=== PATIENT | female | born 1955 | race Caucasian/White ===

== ENCOUNTER 2021-07-30 11:13 | Inpatient (IN) | payer BC, SELFPAY ==
[~2021-07-30] VITALS: Ht 160 cm; Wt 69.9 kg
[2021-07-30 11:17] VITALS: BP_SYST 124
--- NOTE | 2021-07-30 12:15 | NUR ---
Pt in bed with husbad at bedside. Language barrier present. G-tube in place. Edema noted on arms. Pt is A&Ox2. Non-ambulatory. Skin intact. Denies any pain. Bed in lowest position. VSS.
--- NOTE | 2021-07-30 12:26 | NUR ---
ER physician at bedside.
--- NOTE | 2021-07-30 12:33 | NUR ---
Accucheck done and BS results were 92.
[2021-07-30 13:14] LABS: BASOPHILS % (AUTO) 0.4 % (0.0-2.0); EOSINOPHILS % (AUTO) 0.1 % (0.0-4.0); HEMATOCRIT 32.3 % (36-48); HEMOGLOBIN 10.4 g/dL (12.0-16.0); LYMPHOCYTES # (AUTO) 0.4 K/uL (1.0-5.5); LYMPHOCYTES % (AUTO) 3.6 % (20.5-51.5); MEAN CORPUSCULAR HEMOGLOBIN 26 pg (27-31); MEAN CORPUSCULAR HGB CONC 32 % (32-36); MEAN CORPUSCULAR VOLUME 82 fL (79.0-98.0); MONOCYTES # (AUTO) 0.7 K/uL (0.0-1.0); MONOCYTES % (AUTO) 5.5 % (1.7-9.3); NEUTROPHILS # (AUTO) 11.2 K/uL (1.8-7.7); NEUTROPHILS % (AUTO) 90.4 % (40.0-70.0); PLATELET COUNT (AUTO) 502 K/uL (130-430); RED BLOOD CELL COUNT(AUTO) 3.96 MIL/uL (4.2-6.2); RED CELL DISTRIBUTION WIDTH 17.1 % (9.0-15.0); WHITE BLOOD COUNT (AUTO) 12.4 K/uL (4.8-10.8)
[2021-07-30 13:19] LABS: CALCIUM 8.6 mg/dL (8.4-11.0); CREATININE 0.34 mg/dL (0.55-1.30); POTASSIUM 3.9 mmol/L (3.5-5.1)
[2021-07-30 13:36] LABS: ALBUMIN 1.9 g/dL (3.4-4.8); TOTAL BILIRUBIN 0.3 mg/dL (0.0-1.0)
[2021-07-30] MEDS ORDERED: GASTROGRAFIN 120 ML ONE (15:15)
--- NOTE | 2021-07-30 15:23 | NUR ---
PORTABLE X-RAY AT THE BEDSIDE
--- NOTE | 2021-07-30 15:57 | NUR ---
Covid swab sent to lab. Pt is resting. Lethargic but arousable. VSS. at bedside.
--- NOTE | 2021-07-30 16:23 | NUR ---
Accucheck done and results were 117. VSS. at bedside.
[2021-07-30] MEDS ORDERED: NACL 0.9% 1,000 ML IV ONE (18:00)
[2021-07-30] MEDS ORDERED: VANCOMYCIN HCL 1,000 MG in NS 250 ML IV ONE (18:00)
[2021-07-30 18:25] LABS: ACETAMINOPHEN < 1 ug/mL (1-30)
--- NOTE | 2021-07-30 18:44 | NUR ---
Pt running on 100ml/hr NS 0.9. Waiting for pharmacy to bring prescribed medication (Vancomycin) to administer to pt.
[2021-07-30] MEDS ORDERED: VANCOMYCIN HCL 1000 MG/VIAL IV ONE (19:30)
--- NOTE | 2021-07-30 20:00 | NUR ---
called multiple times for report and no answer.
--- NOTE | 2021-07-30 20:08 | NUR ---
Transfer to [facility]. IV present no sign or symptom of infiltration.
[2021-07-30 22:53] VITALS: BP_SYST 121
--- NOTE | 2021-07-30 23:10 | NUR ---
Michelle patients daughter [phone]
--- NOTE | 2021-07-30 23:39 | NUR ---
NURSE CALLED DR IBARRA WHO WAS UPSET ABOUT THE NURSE ASKING FOR TUBE FEEDING ORDER SINCE PATIENTS BLOOD SUGAR HAD DROPPED TO 40 . CHARGE NURSE WAS NOTIFIED. HE STATED WILL CALL THE DOCTOR TO ASK .
[2021-07-31] VITALS: BP_SYST 139
--- NOTE | 2021-07-31 00:04 | NUR ---
LIZ FROM [facility] CALLS REGARDING PATIENT ADMISSION REASON Per Liz, states they need the admission reason to discharge them from their respective facility [facility]. Informed Liz they are admitted here for liver failure.
--- NOTE | 2021-07-31 00:50 | NUR ---
1230 STARTED GLUCERNA 1.2 AT 60 CC PER HOUR . PER SON PATIENT WAS GETTING 75 CC PER HOUR AT THE SNF
[2021-07-31] MEDS ORDERED: ALBUTEROL SULFATE 0.083% 2.5 MG/3 ML VIAL.NEB INH PRN (01:15)
[2021-07-31] MEDS ORDERED: GLUCOSE (DEXTROSE) ORAL GEL -Adults PO PRN ×2 (01:15→13:30)
[2021-07-31] MEDS ORDERED: D5W 1,000 ML IV PRN ×2 (01:15→13:30)
[2021-07-31] MEDS ORDERED: DEXTROSE 50% JECT 50 ML DISP.SYRIN IVP PRN ×2 (01:15→13:30)
[2021-07-31] MEDS ORDERED: MORPHINE 4 MG INJ. 4 MG/ML VIAL IVP PRN (01:15)
[2021-07-31] MEDS ORDERED: NALOXONE HCL 0.4 MG/ML AMP (NARCAN) IVP PRN (01:15)
[2021-07-31] MEDS ORDERED: D5NS 1,000 ML IV SCH (01:15)
[2021-07-31] MEDS ORDERED: MORPHINE 2 MG/ML INJ. SYRINGE IVP PRN (01:15)
[2021-07-31] MEDS ORDERED: cefTRIAXone 1 GM IVPB PREMIX 50 ML IV ONE (02:13)
[2021-07-31] MEDS: cefTRIAXone 1 GM IVPB PREMIX 50 ML IV SCH (02:31)
--- NOTE | 2021-07-31 03:23 | NUR ---
SPOKE WITH PATIENT DAUGHTER MIHAELA WHO WANTED TO SEE HOW PATIENT IS DOIG
[2021-07-31 04:48] VITALS: BP_SYST 139
[2021-07-31] MEDS: ONDANSETRON HCL 4 MG/2 ML VIAL IVP PRN ×2 (05:49→17:04)
--- NOTE | 2021-07-31 07:49 | NUR ---
CONSULTATION PAGED/CALLED Reason for Consultation: [] LIVER FAILURE Person Who was Notified: [] MARY Consulting Physician: [] DR CABALLERO [employer] Consultant Specialty: [] GI Ordering Physician: [] DR PADILLA
--- NOTE | 2021-07-31 08:00 | NUR ---
PATIENT IS AWAKE, RESPONSIVE TO VERBAL STIMULI, ORIENTED X 1 OPEN EYES WHEN CALLED BY NAME. RESPIRATION EVEN AND UNLABORED NO S/S OF ANY ACUTE DISTRESS NOTED. ALL NEEDS ASSESS Q HOURLY AND PRN. ABDOMEN SOFT AND NON-DISTENDED, POSITIVE BOWEL SOUND X 4 NO N/V OR DIARRHEA NOTED. SURGICAL INCISION MID-ABDOMINAL AREA WITH STAPLE INTACT W/O ANY DEHISCENCE OR DISCHARGE NOTED. G-TUBE SITE WITH SOME PURULENT DISCHARGE FROM SITE, WILL NOTIFY MD FOR DRESSING CHANGE ORDER AND ANTIBIOTIC OINTMENT TO BE APPLY @ SITE. NO FEEDING FOR NOW, ORDER FOR MRCP TODAY PER DR. CABALLERO
[2021-07-31 08:03] LABS: BASOPHILS % (AUTO) 0.4 % (0.0-2.0); EOSINOPHILS # (AUTO) 0.1 K/uL (0.0-0.4); EOSINOPHILS % (AUTO) 0.7 % (0.0-4.0); HEMATOCRIT 31.3 % (36-48); HEMOGLOBIN 10.2 g/dL (12.0-16.0); LYMPHOCYTES # (AUTO) 0.8 K/uL (1.0-5.5); LYMPHOCYTES % (AUTO) 9.3 % (20.5-51.5); MEAN CORPUSCULAR HEMOGLOBIN 27 pg (27-31); MEAN CORPUSCULAR HGB CONC 33 % (32-36); MEAN CORPUSCULAR VOLUME 82 fL (79.0-98.0); MONOCYTES # (AUTO) 0.7 K/uL (0.0-1.0); MONOCYTES % (AUTO) 7.7 % (1.7-9.3); NEUTROPHILS # (AUTO) 7.5 K/uL (1.8-7.7); NEUTROPHILS % (AUTO) 81.9 % (40.0-70.0); PLATELET COUNT (AUTO) 520 K/uL (130-430); RED BLOOD CELL COUNT(AUTO) 3.81 MIL/uL (4.2-6.2); RED CELL DISTRIBUTION WIDTH 17.3 % (9.0-15.0); WHITE BLOOD COUNT (AUTO) 9.2 K/uL (4.8-10.8)
[2021-07-31 09:04] LABS: INR 0.9 (0.8-1.2)
[2021-07-31 09:40] LABS: ALBUMIN 1.8 g/dL (3.4-4.8); CALCIUM 8.6 mg/dL (8.4-11.0); CREATININE 0.35 mg/dL (0.55-1.30); POTASSIUM 3.9 mmol/L (3.5-5.1); TOTAL BILIRUBIN 0.4 mg/dL (0.0-1.0)
--- NOTE | 2021-07-31 09:56 | NUR ---
Nutrition Update Sammy Scale 16 noted. Pt admitted for liver failure. Diet: clear liquid BMI: 27.5 kg/m2 RD to follow per nutrition care standards.
--- NOTE | 2021-07-31 11:00 | NUR ---
DR. CABALLERO SAW PATIENT BEFORE MRCP, DC'D ALL ABOMINAL INCISION STAPLE AND LEFT OPEN TO AIR. G-TUBE SITE CLEANSED WITH NORMAL SALINE AND APPLY DRY DRESSING FOR NOW UNTIL ANTIBIOTIC OINTMENT IS AVAILABLE FROM RX. WILL CONTINUE TO REASSES PATIENT PRN.
[2021-07-31 12:00] VITALS: BP_SYST 130
--- NOTE | 2021-07-31 12:33 | NUR ---
CONSULTATION PAGED/CALLED Reason for Consultation: [] hypoglycemia Person Who was Notified: [] LEFT A MESSAGE Consulting Physician: [] DR ESCAMILLA SAYYUNG, M Senior Net Web Developer Specialty: [] ENDOCRINE Ordering Physician: [] DR PADILLA
[2021-07-31 16:00] VITALS: BP_SYST 127
--- NOTE | 2021-07-31 17:00 | NUR ---
MRCP RESULT RELAYED TO DR. CABALLERO WITH NEW ORDER TO RESUME FEEDING VIA G-TUBE WITH GLUCERNA @ 60 CC/HR AND TKO IV FLUID. WILL CONTINUE TO REASSESS PATIENT PRN
--- NOTE | 2021-07-31 19:00 | NUR ---
ENDORSED PATIENT TO PM SHIFT NURSE.
--- NOTE | 2021-07-31 19:55 | NUR ---
Opening notes Pt asleep, opens eyes, non-verbal. VSS, afebrile. at bedside. GT feeding running at 60cc/hr, no residual noted. Abd scar noted open to air. Pt repositioned. Call light within reach. Bed low, locked, siderails up x4, alarm on. To monitor.
[2021-07-31 20:00] VITALS: BP_SYST 120
[2021-07-31] MEDS: BACITRACIN ZINC 15 GM TOPICAL OINTMENT TP SCH (21:55)
[2021-07-31] MEDS ORDERED: ANAS1TAB51 PO (22:45)
[2021-08-01] MEDS: cefTRIAXone 1 GM IVPB PREMIX 50 ML IV SCH (00:08)
--- NOTE | 2021-08-01 00:10 | NUR ---
Rounds/BS check Pt asleep, resting in bed. No s/s distress noted. IV antibiotic administered at ordered rate L. AC 18G clear and patent. BS checked 197, no insulin indicated per protocol. GT feeding Glucerna running at 60cc/hr, water flush 100ml given as ordered. HOB maintained elevated. Repositioned. Call light within reach. To monitor.
[2021-08-01 00:22] VITALS: BP_SYST 128
[2021-08-01] MEDS: INSULIN LISPRO SLIDING SCALE 100 UNITS/ML VIAL (humaLOG) SUBCUT PRN (05:58)
--- NOTE | 2021-08-01 06:00 | NUR ---
Closing notes Pt asleep, resting in bed. No s/s distress noted. IV antibiotic administered at ordered rate L. AC 18G clear and patent. BS checked 219, 2 units Humulog indicated per protocol. GT feeding Glucerna running at 60cc/hr, water flush 100ml given as ordered. HOB maintained elevated. Repositioned. Bry SCDs on. Call light within reach. To monitor. Addendum: 08/01/21 at 0621 by Elen Saini RN 1 unit Humulog given.
--- NOTE | 2021-08-01 07:24 | NUR ---
Endorsed to AM nurse to f/u re Anastrozole 1mg daily that pt takes per .
[2021-08-01 08:00] VITALS: BP_SYST 131
[2021-08-01 08:06] LABS: HEPATITIS A AB, IgM Negative (Negative); HEPATITIS B CORE AB, IgM Negative (Negative); HEPATITIS B SURFACE AG Negative (Negative)
[2021-08-01] MEDS: BACITRACIN ZINC 15 GM TOPICAL OINTMENT TP SCH ×2 (09:00→20:52)
[2021-08-01 12:00] VITALS: BP_SYST 129
[2021-08-01 12:28] LABS: BASOPHILS # (AUTO) 0.1 K/uL (0.0-0.2); BASOPHILS % (AUTO) 0.6 % (0.0-2.0); EOSINOPHILS # (AUTO) 0.1 K/uL (0.0-0.4); EOSINOPHILS % (AUTO) 0.6 % (0.0-4.0); HEMATOCRIT 30.7 % (36-48); HEMOGLOBIN 9.9 g/dL (12.0-16.0); LYMPHOCYTES # (AUTO) 1.3 K/uL (1.0-5.5); LYMPHOCYTES % (AUTO) 14.5 % (20.5-51.5); MEAN CORPUSCULAR HEMOGLOBIN 26 pg (27-31); MEAN CORPUSCULAR HGB CONC 32 % (32-36); MEAN CORPUSCULAR VOLUME 81 fL (79.0-98.0); MONOCYTES # (AUTO) 0.7 K/uL (0.0-1.0); MONOCYTES % (AUTO) 7.4 % (1.7-9.3); NEUTROPHILS # (AUTO) 6.9 K/uL (1.8-7.7); NEUTROPHILS % (AUTO) 76.9 % (40.0-70.0); PLATELET COUNT (AUTO) 504 K/uL (130-430); RED BLOOD CELL COUNT(AUTO) 3.78 MIL/uL (4.2-6.2); RED CELL DISTRIBUTION WIDTH 17.2 % (9.0-15.0)
[2021-08-01 12:54] LABS: ALBUMIN 1.8 g/dL (3.4-4.8); BILIRUBIN,DIRECT 0.1 mg/dL (0.0-0.3); TOTAL BILIRUBIN 0.2 mg/dL (0.0-1.0)
[2021-08-01] MEDS: ONDANSETRON HCL 4 MG/2 ML VIAL IVP PRN ×2 (14:56→22:14)
[2021-08-01 16:00] VITALS: BP_SYST 136
[2021-08-01 20:00] VITALS: BP_SYST 134
[2021-08-02] MEDS: cefTRIAXone 1 GM IVPB PREMIX 50 ML IV SCH (00:33)
[2021-08-02 00:39] VITALS: BP_SYST 116
[2021-08-02 03:08] VITALS: BP_SYST 134
[2021-08-02] MEDS: INSULIN LISPRO SLIDING SCALE 100 UNITS/ML VIAL (humaLOG) SUBCUT PRN ×2 (05:58→19:11)
[2021-08-02 08:21] LABS: BASOPHILS # (AUTO) 0.1 K/uL (0.0-0.2); BASOPHILS % (AUTO) 0.9 % (0.0-2.0); EOSINOPHILS # (AUTO) 0.1 K/uL (0.0-0.4); EOSINOPHILS % (AUTO) 1.1 % (0.0-4.0); HEMATOCRIT 29.7 % (36-48); HEMOGLOBIN 9.7 g/dL (12.0-16.0); LYMPHOCYTES # (AUTO) 1.3 K/uL (1.0-5.5); LYMPHOCYTES % (AUTO) 15.9 % (20.5-51.5); MEAN CORPUSCULAR HEMOGLOBIN 26 pg (27-31); MEAN CORPUSCULAR HGB CONC 33 % (32-36); MEAN CORPUSCULAR VOLUME 81 fL (79.0-98.0); MONOCYTES # (AUTO) 0.6 K/uL (0.0-1.0); MONOCYTES % (AUTO) 6.8 % (1.7-9.3); NEUTROPHILS # (AUTO) 6.1 K/uL (1.8-7.7); NEUTROPHILS % (AUTO) 75.3 % (40.0-70.0); PLATELET COUNT (AUTO) 488 K/uL (130-430); RED BLOOD CELL COUNT(AUTO) 3.66 MIL/uL (4.2-6.2); RED CELL DISTRIBUTION WIDTH 17.3 % (9.0-15.0); WHITE BLOOD COUNT (AUTO) 8.2 K/uL (4.8-10.8)
[2021-08-02 08:51] LABS: ALBUMIN 1.7 g/dL (3.4-4.8); CALCIUM 8.4 mg/dL (8.4-11.0); CREATININE 0.36 mg/dL (0.55-1.30); POTASSIUM 3.8 mmol/L (3.5-5.1)
[2021-08-02 09:18] LABS: TOTAL BILIRUBIN 0.2 mg/dL (0.0-1.0)
[2021-08-02] MEDS: BACITRACIN ZINC 15 GM TOPICAL OINTMENT TP SCH ×2 (11:14→21:04)
[2021-08-02 11:37] VITALS: BP_SYST 130
[2021-08-02] MEDS ORDERED: ONDANSETRON 4 MG ODT TAB PO PRN (14:15)
[2021-08-02] MEDS ORDERED: ANASTROZOLE 1 MG TABLET (ARIMIDEX) PO ONE (14:15)
[2021-08-02 15:40] VITALS: BP_SYST 129
--- NOTE | 2021-08-02 17:21 | NUR ---
Dietitian Recommendations * Glucerna 1.2 at 60 ml/hr, Lázaro BID, Free Water Flush: 150 ml ml Q6h via GT Provides: 1908 kcal/day, 91 gm protein/day, and 1759 ml free water/day Meets: 96% of upper end of estimated caloric needs and 106% of upper end of estimated protein needs LP, RD Please refer to Nutrition Assessment for details. Addendum: 08/02/21 at [address] Amended: Links added.
[2021-08-02 20:00] VITALS: BP_SYST 136
[2021-08-03] VITALS: BP_SYST 136
[2021-08-03 01:01] VITALS: BP_SYST 143
[2021-08-03] MEDS: cefTRIAXone 1 GM IVPB PREMIX 50 ML IV SCH (01:11)
[2021-08-03] MEDS: INSULIN LISPRO SLIDING SCALE 100 UNITS/ML VIAL (humaLOG) SUBCUT PRN ×2 (05:55→13:35)
[2021-08-03] MEDS: LEVOTHYROXINE SODIUM 0.05 MG TABLET PO SCH (06:01)
[2021-08-03 08:00] VITALS: BP_SYST 148
--- NOTE | 2021-08-03 08:00 | NUR ---
Morning rounds: Pt laying in bed, eyes closed. VVS, IV site clean dry and intact, Gtube intact and in place, tube feeding running at ordered rate, no residual. SCDs in place and running, fall and safety precautions in place, call light within reach, will continue to monitor.
[2021-08-03] MEDS: BACITRACIN ZINC 15 GM TOPICAL OINTMENT TP SCH ×2 (10:03→21:58)
[2021-08-03] MEDS: ANASTROZOLE 1 MG TABLET (ARIMIDEX) PO SCH (10:06)
[2021-08-03] MEDS: INSULIN GLARGINE 100 UNITS/ML 10 ML VIAL SUBCUT SCH (10:08)
[2021-08-03 10:25] LABS: BASOPHILS # (AUTO) 0.1 K/uL (0.0-0.2); BASOPHILS % (AUTO) 0.6 % (0.0-2.0); EOSINOPHILS # (AUTO) 0.1 K/uL (0.0-0.4); EOSINOPHILS % (AUTO) 0.8 % (0.0-4.0); HEMATOCRIT 31.2 % (36-48); LYMPHOCYTES # (AUTO) 1.3 K/uL (1.0-5.5); LYMPHOCYTES % (AUTO) 16.8 % (20.5-51.5); MEAN CORPUSCULAR HEMOGLOBIN 26 pg (27-31); MEAN CORPUSCULAR HGB CONC 32 % (32-36); MEAN CORPUSCULAR VOLUME 81 fL (79.0-98.0); MONOCYTES # (AUTO) 0.5 K/uL (0.0-1.0); MONOCYTES % (AUTO) 6.9 % (1.7-9.3); NEUTROPHILS # (AUTO) 5.9 K/uL (1.8-7.7); NEUTROPHILS % (AUTO) 74.9 % (40.0-70.0); PLATELET COUNT (AUTO) 532 K/uL (130-430); RED BLOOD CELL COUNT(AUTO) 3.83 MIL/uL (4.2-6.2); RED CELL DISTRIBUTION WIDTH 16.9 % (9.0-15.0); WHITE BLOOD COUNT (AUTO) 7.9 K/uL (4.8-10.8)
[2021-08-03 12:08] LABS: ALBUMIN 1.8 g/dL (3.4-4.8); CALCIUM 8.9 mg/dL (8.4-11.0); CREATININE 0.53 mg/dL (0.55-1.30); POTASSIUM 3.8 mmol/L (3.5-5.1); TOTAL BILIRUBIN 0.1 mg/dL (0.0-1.0)
[2021-08-03] MEDS: ONDANSETRON HCL 4 MG/2 ML VIAL IVP PRN ×2 (12:56→21:44)
[2021-08-03 17:31] VITALS: BP_SYST 143
[2021-08-03 17:40] VITALS: BP_SYST 143
--- NOTE | 2021-08-03 18:53 | NUR ---
Closing notes: Pt laying in bed, eyes closed. VVS, IV site clean dry and intact, Gtube intact and in place, tube feeding running at ordered rate, no residual. SCDs in place and running, fall and safety precautions in place, call light within reach, will endorse to overnight babysitter.
[2021-08-03 20:00] VITALS: BP_SYST 147
[2021-08-04 00:51] VITALS: BP_SYST 149
[2021-08-04] MEDS: cefTRIAXone 1 GM IVPB PREMIX 50 ML IV SCH (01:17)
[2021-08-04] MEDS: LEVOTHYROXINE SODIUM 0.05 MG TABLET PO SCH (06:01)
[2021-08-04 08:00] VITALS: BP_SYST 138
[2021-08-04] MEDS: BACITRACIN ZINC 15 GM TOPICAL OINTMENT TP SCH (09:59)
[2021-08-04] MEDS: ANASTROZOLE 1 MG TABLET (ARIMIDEX) PO SCH (09:59)
[2021-08-04] MEDS: INSULIN GLARGINE 100 UNITS/ML 10 ML VIAL SUBCUT SCH (10:00)
[2021-08-04 11:26] VITALS: BP_SYST 143
[2021-08-04] MEDS: ONDANSETRON HCL 4 MG/2 ML VIAL IVP PRN (11:34)
[2021-08-04 16:00] VITALS: BP_SYST 136
[2021-08-04 16:11] VITALS: BP_SYST 136
--- NOTE | 2021-08-04 16:50 | NUR ---
Attempt to call report: Facility did not answer. Will try again.
--- NOTE | 2021-08-04 17:00 | NUR ---
Attempt to call report: Facility did not answer. Will try again.
--- NOTE | 2021-08-04 17:15 | NUR ---
Attempt to call report: Facility answer, RN not available to receive report. Will try again.
--- NOTE | 2021-08-04 17:40 | NUR ---
Attempt to call report: Facility did not answer. Will try again.
--- NOTE | 2021-08-04 17:50 | NUR ---
Attempt to call report: Facility did not answer. Will try again.
--- NOTE | 2021-08-04 18:05 | NUR ---
RN notes: at bedside for transfer of pt to SNF, aware and agreed to transfer.
--- NOTE | 2021-08-04 18:06 | NUR ---
Report to SNF: Report given to Keyonna IBARRA, admitting DR. maya Celis.
--- NOTE | 2021-08-04 18:35 | NUR ---
D/C Patient Patient given medication reconciliation form and D/C instructions. Exit Care provided. Patient family verbalized understanding. MD discussed with family the results and treatment provided. Non ambulatory for discharge back to SNF. Patient in stable condition, G tube intact. ID band removed. IV catheter removed, intact and dressing applied, no active bleeding. Rx of Insulin sliding scale given. All belongings sent with patient.
== END 2021-08-04 18:35 | DRG 637 ==
LOC: SED 11:13 → SMU 17:47
PROVIDERS: ADMIT Internal Medicine Hospice and Palliative Medicine; ATTEND Internal Medicine Hospice and Palliative Medicine
DX: E11.649 Type 2 diabetes mellitus with hypoglycemia without coma (principal); E43 Unspecified severe protein-calorie malnutrition; C22.9 Malignant neoplasm of liver, not specified as primary or secondary; C79.31 Secondary malignant neoplasm of brain; I10 Essential (primary) hypertension; E78.5 Hyperlipidemia, unspecified; R13.10 Dysphagia, unspecified; E11.65 Type 2 diabetes mellitus with hyperglycemia; E03.9 Hypothyroidism, unspecified; K72.90 Hepatic failure, unspecified without coma; Z20.822 Contact with and (suspected) exposure to COVID-19; D64.9 Anemia, unspecified; Z79.4 Long term (current) use of insulin; Z79.890 Hormone replacement therapy; Z85.05 Personal history of malignant neoplasm of liver; Z85.3 Personal history of malignant neoplasm of breast; Z90.49 Acquired absence of other specified parts of digestive tract; Z92.21 Personal history of antineoplastic chemotherapy; Z87.442 Personal history of urinary calculi; Z92.3 Personal history of irradiation; Z93.1 Gastrostomy status; Z68.27 Body mass index [BMI] 27.0-27.9, adult
CPT/HCPCS: 36415; 74181; 74240-TC; 76376; 76700-TC; 80053; 80074; 80076; 82962; 83036; 83690; 85025; 85610-TC; 87040; 87081; 94760; 99285; G0480; G0481; J0696; J1815; J2405; J3370; Q0162; Q9963

== ENCOUNTER 2021-08-30 09:25 | Emergency (ER) | payer BC, SELFPAY ==
[~2021-08-30] VITALS: Ht 152.4 cm; Wt 56.7 kg
[2021-08-30 09:25] VITALS: BP_SYST 148
[~2021-08-30 09:25] MED LIST: ANAS1TAB51 PO
--- NOTE | 2021-08-30 09:35 | NUR ---
initial contact with pt. pt sent from [facility] for GT displacement. pt not alert or awake, eyes closed, no eye contact was made. patient appears lethargic. pt hs hx DM, HTN , CA. pt transfered from weelchair to bed, on the quality assurance monitor final, no orders received
--- NOTE | 2021-08-30 09:35 | NUR ---
Patient to ER bed 2 to gown for evaluation. Side rails up. Report given to Violet IBARRA
[2021-08-30 09:49] VITALS: BP_SYST 136
[2021-08-30] MEDS ORDERED: GASTROGRAFIN 120 ML PO ONE (10:45)
--- NOTE | 2021-08-30 10:55 | NUR ---
DR ZAMORA AT THE BED SIDE GT TUBE PLACEMENT PROCEDURE IN ROUTE, OLD G- TUBE REMOVED AND NEW GTUBE PLACED, BALOON INFLATED WITH 100 CC NS. PT STABLE ON THE MONITOR
[2021-08-30] MEDS ORDERED: GASTROGRAFIN 120 ML ONE (10:56)
--- NOTE | 2021-08-30 11:19 | NUR ---
XRAY AT THE BED SIDE, GASTROGRAFIN 10 CC INFUSED.
[2021-08-30 11:48] VITALS: BP_SYST 110
--- NOTE | 2021-08-30 11:55 | NUR ---
PT CARE WAS PROVIDED . PT CLEANED AND CHANGED, NO CONDITION JOHN CARTAGENA
--- NOTE | 2021-08-30 12:00 | NUR ---
Patient given written and verbal discharge instructions and verbalizes understanding. ER MD discussed with patient the results and treatment provided. Patient in stable condition. ID arm band removed. IV catheter removed intact and dressing applied, no active bleeding. ACI of given. Patient educated on pain management and to follow up with PMD. Pain Scale . Opportunity for questions TO provided and answered. Medication side effect fact sheet provided.
== END 2021-08-30 12:25 | disposition home or self-care (01) ==
LOC: SED 09:25
DX: K94.23 Gastrostomy malfunction (principal)
CPT/HCPCS: 43762; 74240; 82962; 99284; Q9963

== ENCOUNTER 2021-08-31 09:51 | Emergency (ER) | payer BC ==
[~2021-08-31] VITALS: Ht 152.4 cm; Wt 54.4 kg
[2021-08-31 10:15] VITALS: BP_SYST 129
--- NOTE | 2021-08-31 10:16 | NUR ---
Patient to AMB1 to gown for evaluation. Side rails up.
--- NOTE | 2021-08-31 10:20 | NUR ---
GLYNN Bangura at bedside examining patient.
--- NOTE | 2021-08-31 10:22 | NUR ---
PT SENT FOR EVALUATION OF LEAK AT [facility] SITE.PT HAS LEAKAGE NOTED. BALLOON FOR GT INFLATED TO 20CC. 40 CC FLUSH DONE TO FURTHER LEAKAGE NOTED.
[2021-08-31 10:26] VITALS: BP_SYST 129
--- NOTE | 2021-08-31 10:26 | NUR ---
Patient given written and verbal discharge instructions and verbalizes understanding. ER MD discussed with patient the results and treatment provided. Patient in stable condition. ID arm band removed. NO Rx of given. Patient educated on pain management and to follow up with PMD. Pain Scale 0 Opportunity for questions provided and answered. Medication side effect fact sheet provided.
== END 2021-08-31 10:26 | disposition home or self-care (01) ==
LOC: SED 09:51
DX: K94.23 Gastrostomy malfunction (principal); E13.69 Other specified diabetes mellitus with other specified complication
CPT/HCPCS: 99282; 99283

== ENCOUNTER 2021-09-02 13:14 | Inpatient (IN) | payer BC, SELFPAY ==
[~2021-09-02] VITALS: Ht 162.6 cm; Wt 63.5 kg
[2021-09-02 13:33] VITALS: BP_SYST 131
[2021-09-02] MEDS ORDERED: LOPE2CAP GT (14:01)
[2021-09-02] MEDS ORDERED: PERC10 PO (14:01)
[2021-09-02] MEDS ORDERED: OXYIR5 GT (14:01)
[2021-09-02] MEDS ORDERED: LACT1TAB14 GT (14:01)
[2021-09-02] MEDS ORDERED: ANAS1TAB51 GT (14:01)
[2021-09-02] MEDS ORDERED: FOLI-43 GT (14:01)
[2021-09-02] MEDS ORDERED: ESCI10TA GT (14:01)
[2021-09-02] MEDS ORDERED: MAGN400T10 GT (14:01)
[2021-09-02] MEDS ORDERED: INSU100I28 SQ (14:01)
[2021-09-02] MEDS ORDERED: SYN50 PO (14:01)
[2021-09-02] MEDS ORDERED: SULF1TAB48 GT (14:01)
[2021-09-02] MEDS ORDERED: CYAN100010 GT (14:01)
[2021-09-02] MEDS ORDERED: PYRI-6 GT (14:01)
[2021-09-02] MEDS ORDERED: ONDA-8 TL (14:01)
[2021-09-02] MEDS ORDERED: INSU100V9 SQ (14:01)
[2021-09-02 14:20] LABS: BASOPHILS % (AUTO) 0.5 % (0.0-2.0); EOSINOPHILS # (AUTO) 0.1 K/uL (0.0-0.4); EOSINOPHILS % (AUTO) 0.9 % (0.0-4.0); HEMOGLOBIN 11.2 g/dL (12.0-16.0); LYMPHOCYTES # (AUTO) 1.4 K/uL (1.0-5.5); LYMPHOCYTES % (AUTO) 21.3 % (20.5-51.5); MEAN CORPUSCULAR HEMOGLOBIN 25 pg (27-31); MEAN CORPUSCULAR HGB CONC 32 % (32-36); MEAN CORPUSCULAR VOLUME 76 fL (79.0-98.0); MONOCYTES # (AUTO) 0.5 K/uL (0.0-1.0); MONOCYTES % (AUTO) 7.9 % (1.7-9.3); NEUTROPHILS # (AUTO) 4.6 K/uL (1.8-7.7); NEUTROPHILS % (AUTO) 69.4 % (40.0-70.0); PLATELET COUNT (AUTO) 398 K/uL (130-430); RED BLOOD CELL COUNT(AUTO) 4.59 MIL/uL (4.2-6.2); RED CELL DISTRIBUTION WIDTH 18.5 % (9.0-15.0); WHITE BLOOD COUNT (AUTO) 6.6 K/uL (4.8-10.8)
[2021-09-02 14:21] LABS: CALCIUM 7.8 mg/dL (8.4-11.0); CREATININE 0.37 mg/dL (0.55-1.30); POTASSIUM 3.7 mmol/L (3.5-5.1)
[2021-09-02 14:27] LABS: ALBUMIN 1.9 g/dL (3.4-4.8); TOTAL BILIRUBIN 0.2 mg/dL (0.0-1.0)
[2021-09-02] MEDS: NACL 0.9% 1,000 ML IV SCH (20:58)
[2021-09-02] MEDS ORDERED: oxyCODONE HCL 5 MG TABLET GT PRN (21:00)
[2021-09-02] MEDS ORDERED: ONDANSETRON 4 MG ODT TAB TL PRN (21:00)
[2021-09-02] MEDS ORDERED: OXYCODONE/ACETAMINOPHEN *10*mg/325 mg TABLET PO PRN (21:00)
[2021-09-02 21:19] VITALS: BP_SYST 113
[2021-09-03 00:38] VITALS: BP_SYST 139
[2021-09-03 08:00] VITALS: BP_SYST 125
[2021-09-03] MEDS: CITALOPRAM HYDROBROMIDE 20 MG TABLET GT SCH (09:00)
[2021-09-03] MEDS: MAGNESIUM OXIDE 400 MG TABLET GT SCH (09:00)
[2021-09-03] MEDS: PYRIDOXINE HCL 50 MG TABLET GT SCH (09:00)
[2021-09-03] MEDS: NACL 0.9% 1,000 ML IV SCH ×2 (09:00→22:25)
[2021-09-03] MEDS: CYANOCOBALAMIN 1000 mCg TABLET GT SCH (09:00)
[2021-09-03] MEDS: FOLIC ACID 1 MG TABLET GT SCH (09:00)
[2021-09-03] MEDS ORDERED: ANASTROZOLE 1 MG TABLET (ARIMIDEX) PO SCH (09:00)
[2021-09-03] MEDS ORDERED: CEFAZOLIN 1 GM IVPB PREMIX 50 ML IV ONE (09:45)
[2021-09-03] MEDS ORDERED: DEXTROSE 50% JECT 50 ML DISP.SYRIN IVP PRN (09:45)
[2021-09-03] MEDS: ANASTROZOLE 1 MG TABLET (ARIMIDEX) GT SCH (10:00)
[2021-09-03] MEDS: D5NS 1,000 ML IV SCH (10:00)
[2021-09-03] MEDS ORDERED: GADOTERATE MEGLUMINE 7.5 MMOL/15 ML VIAL IV ONE (10:02)
[2021-09-03] MEDS: MEPERIDINE 100 MG INJ. 100 MG/ML VIAL ONE ×2 (10:19→10:24)
[2021-09-03] MEDS: MIDAZOLAM HCL 5 MG/5 ML VIAL ONE ×3 (10:19→10:32)
[2021-09-03 12:00] VITALS: BP_SYST 135
[2021-09-03] MEDS: LEVOTHYROXINE SODIUM 0.05 MG TABLET PO SCH (12:30)
[2021-09-03 16:00] VITALS: BP_SYST 125
[2021-09-03 22:23] VITALS: BP_SYST 125
[2021-09-04] MEDS: D5NS 1,000 ML IV SCH ×3 (00:03→22:54)
[2021-09-04 00:45] VITALS: BP_SYST 128
[2021-09-04] MEDS: LEVOTHYROXINE SODIUM 0.05 MG TABLET PO SCH ×2 (06:47→21:19)
[2021-09-04 08:29] VITALS: BP_SYST 143
[2021-09-04] MEDS: CITALOPRAM HYDROBROMIDE 20 MG TABLET GT SCH (09:00)
[2021-09-04] MEDS: PYRIDOXINE HCL 50 MG TABLET GT SCH (09:00)
[2021-09-04] MEDS: MAGNESIUM OXIDE 400 MG TABLET GT SCH (09:00)
[2021-09-04] MEDS: ANASTROZOLE 1 MG TABLET (ARIMIDEX) GT SCH (09:00)
[2021-09-04] MEDS: CYANOCOBALAMIN 1000 mCg TABLET GT SCH (09:00)
[2021-09-04] MEDS: FOLIC ACID 1 MG TABLET GT SCH (09:00)
[2021-09-04] MEDS ORDERED: DIATR MEGLU/DIATRIZ SOD 30 ML SOLUTION PO ONE (11:36)
[2021-09-04] MEDS: NACL 0.9% 1,000 ML IV SCH ×2 (13:02→22:44)
[2021-09-04 13:03] VITALS: BP_SYST 138
[2021-09-04 18:13] VITALS: BP_SYST 150
[2021-09-04 20:00] VITALS: BP_SYST 153
[2021-09-04 22:41] VITALS: BP_SYST 142
[2021-09-05] VITALS (10 sets, daily range): BP systolic 129–162
[2021-09-05] MEDS ORDERED: BUPIVACAINE LIPOSOME/PF 266 MG/20 ML VIAL INFIL ONE (08:50)
[2021-09-05] MEDS: CYANOCOBALAMIN 1000 mCg TABLET GT SCH (09:00)
[2021-09-05] MEDS: FOLIC ACID 1 MG TABLET GT SCH (09:00)
[2021-09-05] MEDS: ANASTROZOLE 1 MG TABLET (ARIMIDEX) GT SCH (09:00)
[2021-09-05] MEDS: PYRIDOXINE HCL 50 MG TABLET GT SCH (09:00)
[2021-09-05] MEDS: CITALOPRAM HYDROBROMIDE 20 MG TABLET GT SCH (09:00)
[2021-09-05] MEDS: MAGNESIUM OXIDE 400 MG TABLET GT SCH (09:00)
[2021-09-05] MEDS ORDERED: NS IRRIG SOLN 1000 ML IR ONE (09:30)
[2021-09-05] MEDS ORDERED: SEVOFLURANE 15 MIN GAS INH ONE (09:30)
[2021-09-05] MEDS ORDERED: SUGAMMADEX SODIUM 200 MG/2 ML VIAL IV ONE (09:30)
[2021-09-05] MEDS ORDERED: WATER FOR IRRIGATION,STERILE 1,000 ML IRRIG.SOLN IR ONE (09:30)
[2021-09-05] MEDS ORDERED: ROCURONIUM BROMIDE 10 MG/ML (ZEMURON) ONE (09:30)
[2021-09-05] MEDS ORDERED: PROPOFOL 200MG/ 20ML VIAL (DIPRIVAN) IV ONE (09:30)
[2021-09-05] MEDS ORDERED: LR 1,000 ML IV.SOLN IV ONE (09:30)
[2021-09-05] MEDS ORDERED: SUCCINYLCHOLINE CHLORIDE 20 MG/ML(QUELICIN) ONE (09:30)
[2021-09-05 09:43] LABS: PROTHROMBIN TIME 10.9 SECS (9.5-12.5)
[2021-09-05] MEDS ORDERED: MORPHINE 4 MG INJ. 4 MG/ML VIAL IVP PRN ×2 (10:30)
[2021-09-05] MEDS ORDERED: ONDANSETRON HCL 4 MG/2 ML VIAL IVP PRN (10:30)
[2021-09-05] MEDS ORDERED: LR 1,000 ML IV SCH (10:30)
[2021-09-05] MEDS: NACL 0.9% 1,000 ML IV SCH (13:52)
[2021-09-05] MEDS ORDERED: DIATR MEGLU/DIATRIZ SOD 30 ML SOLUTION PO ONE (14:05)
[2021-09-05] MEDS: INSULIN REGULAR, HUMAN 100 UNITS/ML, 10 ML VIAL (humuLIN R) SUBCUT PRN (18:43)
[2021-09-05] MEDS: D5NS 1,000 ML IV SCH (18:52)
[2021-09-06] MEDS: NACL 0.9% 1,000 ML IV SCH (05:51)
[2021-09-06 06:30] VITALS: BP_SYST 127
[2021-09-06] MEDS: INSULIN REGULAR, HUMAN 100 UNITS/ML, 10 ML VIAL (humuLIN R) SUBCUT PRN ×2 (07:42→12:56)
[2021-09-06 08:00] VITALS: BP_SYST 112
[2021-09-06] MEDS: PYRIDOXINE HCL 50 MG TABLET GT SCH (08:42)
[2021-09-06] MEDS: LEVOTHYROXINE SODIUM 0.05 MG TABLET PO SCH (08:42)
[2021-09-06] MEDS: FOLIC ACID 1 MG TABLET GT SCH (08:42)
[2021-09-06] MEDS: MAGNESIUM OXIDE 400 MG TABLET GT SCH (08:42)
[2021-09-06] MEDS: CYANOCOBALAMIN 1000 mCg TABLET GT SCH (08:42)
[2021-09-06] MEDS: CITALOPRAM HYDROBROMIDE 20 MG TABLET GT SCH (08:42)
[2021-09-06] MEDS: D5NS 1,000 ML IV SCH (08:45)
[2021-09-06] MEDS: ANASTROZOLE 1 MG TABLET (ARIMIDEX) GT SCH (09:00)
[2021-09-06 11:49] VITALS: BP_SYST 117
[2021-09-06 12:17] VITALS: BP_SYST 112
[2021-09-06 16:23] VITALS: BP_SYST 121
== END 2021-09-06 17:00 | DRG 327 ==
LOC: SED 13:14 → SMU 14:14
PROVIDERS: ADMIT Internal Medicine Hospice and Palliative Medicine; ATTEND Internal Medicine Hospice and Palliative Medicine
PROC: 0DJ64ZZ Inspection of Stomach, Percutaneous Endoscopic Approach (ICD-10-PCS; 2021-09-03)
PROC: 0DNU4ZZ Release Omentum, Percutaneous Endoscopic Approach (ICD-10-PCS; 2021-09-03)
PROC: 0WQF4ZZ Repair Abdominal Wall, Percutaneous Endoscopic Approach (ICD-10-PCS; 2021-09-03)
PROC: 8E0W4CZ Robotic Assisted Procedure of Trunk Region, Percutaneous Endoscopic Approach (ICD-10-PCS; 2021-09-03)
PROC: 0DH64UZ Insertion of Feeding Device into Stomach, Percutaneous Endoscopic Approach (ICD-10-PCS; 2021-09-03)
PROC: 0DJ08ZZ Inspection of Upper Intestinal Tract, Via Natural or Artificial Opening Endoscopic (ICD-10-PCS; principal; 2021-09-03 10:00)
DX: K94.23 Gastrostomy malfunction (principal); C79.9 Secondary malignant neoplasm of unspecified site; C50.919 Malignant neoplasm of unspecified site of unspecified female breast; I10 Essential (primary) hypertension; E11.9 Type 2 diabetes mellitus without complications; K44.9 Diaphragmatic hernia without obstruction or gangrene; R13.10 Dysphagia, unspecified; K29.70 Gastritis, unspecified, without bleeding; E78.5 Hyperlipidemia, unspecified; E03.9 Hypothyroidism, unspecified; Y83.8 Other surgical procedures as the cause of abnormal reaction of the patient, or of later complication, without mention of misadventure at the time of the procedure; Y82.8 Other medical devices associated with adverse incidents; Z20.822 Contact with and (suspected) exposure to COVID-19; Z85.3 Personal history of malignant neoplasm of breast; Z87.442 Personal history of urinary calculi; Z79.899 Other long term (current) drug therapy; Y92.89 Other specified places as the place of occurrence of the external cause
CPT/HCPCS: 36415; 43235; 70553; 71045; 76376; 78306; 80053; 82962; 85025; 85610-TC; 85730-TC; 86886; 86900; 86901; 87081; 93005; 99285; A9503; A9575; C1769; C9290; J0330; J0690; J1815; J2175; J2250; J2704; J3490; J7120; Q9964; Q9967

== ENCOUNTER 2022-02-17 06:26 | Day surgery (SDC) | payer BC ==
[~2022-02-17] VITALS: Ht 160 cm; Wt 65.8 kg
[~2022-02-17 06:26] MED LIST changes: +ANAS1TAB51 GT; +CYAN100010 GT; +ESCI10TA GT; +FOLI-43 GT; +INSU100I28 SQ; +INSU100V9 SQ; +LACT1TAB14 GT; +LOPE2CAP GT; +MAGN400T10 GT; +ONDA-8 TL; +OXYIR5 GT; +PERC10 PO; +PYRI-6 GT; +SULF1TAB48 GT; +SYN50 PO
[2022-02-17] MEDS ORDERED: MIDAZOLAM HCL 5 MG/5 ML VIAL ONE (08:48)
[2022-02-17] MEDS ORDERED: MEPERIDINE 100 MG INJ. 100 MG/ML VIAL ONE (08:48)
[2022-02-17] MEDS ORDERED: SIMETHICONE 40 MG/0.6 ML ML ONE (08:48)
[2022-02-17 13:28] VITALS: BP_SYST 107
== END 2022-02-17 10:35 | disposition home or self-care (01) ==
LOC: SDS 06:26 → SMU 09:26 → SDS 10:35
PROVIDERS: ATTEND Internal Medicine Gastroenterology
DX: K94.23 Gastrostomy malfunction (principal); I10 Essential (primary) hypertension; E11.9 Type 2 diabetes mellitus without complications; E78.5 Hyperlipidemia, unspecified; R68.89 Other general symptoms and signs; Z20.822 Contact with and (suspected) exposure to COVID-19; Z86.010 Personal history of colon polyps; Z85.3 Personal history of malignant neoplasm of breast; Z90.49 Acquired absence of other specified parts of digestive tract; Z79.899 Other long term (current) drug therapy
CPT/HCPCS: 43246; 82962; 36415; 87426; G0378; J2250; J2175

== ENCOUNTER 2023-01-23 14:42 | Emergency (ER) | payer BC ==
[~2023-01-23] VITALS: Ht 165.1 cm; Wt 59.0 kg
[2023-01-23 14:57] VITALS: BP_SYST 98; PULSE 90; RESP 26; TEMP 97.2; O2SAT 100
[2023-01-23 17:10] LABS: BASOPHILS % (AUTO) 1.2 % (0.0-2.0); EOSINOPHILS # (AUTO) 0.1 K/uL (0.0-0.4); EOSINOPHILS % (AUTO) 2.8 % (0.0-4.0); HEMATOCRIT 37.1 % (36-48); HEMOGLOBIN 11.8 g/dL (12.0-16.0); LYMPHOCYTES # (AUTO) 1.2 K/uL (1.0-5.5); LYMPHOCYTES % (AUTO) 32.6 % (20.5-51.5); MEAN CORPUSCULAR HEMOGLOBIN 26 pg (27-31); MEAN CORPUSCULAR HGB CONC 32 % (32-36); MEAN CORPUSCULAR VOLUME 83 fL (79.0-98.0); MONOCYTES # (AUTO) 0.4 K/uL (0.0-1.0); MONOCYTES % (AUTO) 10.2 % (1.7-9.3); NEUTROPHILS # (AUTO) 1.9 K/uL (1.8-7.7); NEUTROPHILS % (AUTO) 53.2 % (40.0-70.0); PLATELET COUNT (AUTO) 453 K/uL (130-430); RED BLOOD CELL COUNT(AUTO) 4.47 MIL/uL (4.2-6.2); WHITE BLOOD COUNT (AUTO) 3.5 K/uL (4.8-10.8)
[2023-01-23 17:23] LABS: CALCIUM 8.7 mg/dL (8.4-11.0); CREATININE 0.47 mg/dL (0.55-1.30)
[2023-01-23 17:27] LABS: ALBUMIN 2.6 g/dL (3.4-4.8); TOTAL BILIRUBIN 0.3 mg/dL (0.0-1.0)
[2023-01-23] MEDS ORDERED: levETIRAcetam 1,000 MG IV BAG 100 ML IV ONE (17:30)
[2023-01-23] MEDS ORDERED: LEVE100S PO (18:13)
[2023-01-23 20:12] LABS: BILIRUBIN,URINE NEGATIVE (NEGATIVE); BLOOD, URINE 1+ (NEGATIVE); CLARITY/URINE CLOUDY (CLEAR); COLOR,URINE YELLOW (YELLOW); GLUCOSE,URINE NEGATIVE (NEGATIVE); KETONES,URINE NEGATIVE (NEGATIVE); LEUKOCYTE ESTERASE ,URINE 3+ (NEGATIVE); NITRITE, URINE POSITIVE (NEGATIVE); PH,URINE 7.5 (5.0-8.0); PROTEIN URINE TRACE (NEGATIVE); UROBILINOGEN,URINE 0.2 (0.2-1.0)
[2023-01-23 20:20] LABS: WBC,URINE >100 /HPF (0-3)
[2023-01-23 20:21] LABS: BACTERIA,URINE MANY /HPF (None Seen); MUCUS,URINE None Seen /LPF (None Seen); URINE AMORPHOUS PHOSPHATES 3+ /HPF (None Seen)
[2023-01-23] MEDS ORDERED: CEPH250S PO (20:25)
[2023-01-23] MEDS ORDERED: ONDANSETRON HCL 4 MG/2 ML VIAL IVP ONE (21:15)
== END 2023-01-23 21:15 | disposition home or self-care (01) ==
LOC: SED 14:42
DX: R56.9 Unspecified convulsions (principal); E11.9 Type 2 diabetes mellitus without complications; Z79.4 Long term (current) use of insulin; Z85.841 Personal history of malignant neoplasm of brain; Z79.899 Other long term (current) drug therapy
CPT/HCPCS: 99285; 96365; 70450; 96375; 80053; 81000; 85025; 87086; 36415; 93005; 76376; 83605; J1953; J2405

== ENCOUNTER 2023-03-21 20:02 | Emergency (ER) | payer BC ==
[~2023-03-21] VITALS: Ht 160 cm; Wt 70.3 kg
[~2023-03-21 20:02] MED LIST changes: +CEPH250S PO; +LEVE100S PO
[2023-03-21 20:18] VITALS: BP_SYST 102; PULSE 82; RESP 16; TEMP 97.5; O2SAT 96
[2023-03-21] MEDS ORDERED: GASTROGRAFIN 120 ML ONE (22:45)
[2023-03-21] MEDS ORDERED: LevETIRAcetam 500 MG/5 ML UDC ORAL LIQUID GT ONE (23:00)
[2023-03-21 23:48] VITALS: BP_SYST 102; PULSE 82; RESP 16; TEMP 97.5; O2SAT 96
== END 2023-03-21 23:48 | disposition home or self-care (01) ==
LOC: SED 20:02
DX: Z43.1 Encounter for attention to gastrostomy (principal); E11.9 Type 2 diabetes mellitus without complications; Z85.841 Personal history of malignant neoplasm of brain; Z79.4 Long term (current) use of insulin; Z79.899 Other long term (current) drug therapy
CPT/HCPCS: 74240; 99284; 43762; Q9963

== ENCOUNTER 2023-04-27 19:36 | Emergency (ER) | payer BC ==
[2023-04-27 20:52] VITALS: BP_SYST 135; PULSE 76; RESP 20; TEMP 97.6; O2SAT 97
[2023-04-27] MEDS ORDERED: GASTROGRAFIN 120 ML ONE (22:37)
[2023-04-28 00:31] VITALS: BP_SYST 132; PULSE 70; RESP 18; TEMP 97.7; O2SAT 97
== END 2023-04-28 00:31 | disposition home or self-care (01) ==
LOC: SED 19:36
DX: Z43.1 Encounter for attention to gastrostomy (principal); K56.7 Ileus, unspecified; E11.9 Type 2 diabetes mellitus without complications; Z79.4 Long term (current) use of insulin; Z85.841 Personal history of malignant neoplasm of brain; Z79.899 Other long term (current) drug therapy
CPT/HCPCS: 99284; 43762; 74240; Q9963

== ENCOUNTER 2023-08-20 11:51 | Emergency (ER) | payer BC ==
[~2023-08-20] VITALS: Ht 160 cm; Wt 67.1 kg
[~2023-08-20 11:51] MED LIST changes: -ANAS1TAB51 GT; +ASA81 PO; -CEPH250S PO; +DEC4 PO; +ESCI-6 PO; +IPRA0.2S53 HHN; +LEVE500S9 PO; +LEVO50TA8 PO; -LOPE2CAP GT; +ONDA8TAB60 PO; -OXYIR5 GT; -PERC10 PO; -PYRI-6 GT; +SCOP1PAT21 TP; -SULF1TAB48 GT
[2023-08-20 14:52] VITALS: BP_SYST 114; PULSE 93; RESP 18; TEMP 97.1; O2SAT 97
[2023-08-20 17:40] VITALS: BP_SYST 114; PULSE 93; RESP 18; TEMP 97.1; O2SAT 97
== END 2023-08-20 17:40 | disposition home or self-care (01) ==
LOC: SED 11:51
DX: K94.23 Gastrostomy malfunction (principal); E11.9 Type 2 diabetes mellitus without complications; E03.9 Hypothyroidism, unspecified; Z79.4 Long term (current) use of insulin; Z85.841 Personal history of malignant neoplasm of brain; Z79.899 Other long term (current) drug therapy
CPT/HCPCS: 74240; 99284

== ENCOUNTER 2023-08-21 17:41 | Emergency (ER) | payer BC ==
[~2023-08-21] VITALS: Ht 160 cm; Wt 65.8 kg
[2023-08-21 18:30] VITALS: BP_SYST 114; PULSE 80; RESP 16; TEMP 98; O2SAT 96
[2023-08-21 21:05] VITALS: BP_SYST 114; PULSE 80; RESP 16; TEMP 98; O2SAT 96
== END 2023-08-21 21:02 | disposition home or self-care (01) ==
LOC: SED 17:41
DX: Z93.1 Gastrostomy status (principal); E11.9 Type 2 diabetes mellitus without complications; E03.9 Hypothyroidism, unspecified; Z79.4 Long term (current) use of insulin; Z85.841 Personal history of malignant neoplasm of brain; Z79.899 Other long term (current) drug therapy
CPT/HCPCS: 74240; 99283

== ENCOUNTER 2023-12-04 21:44 | Emergency (ER) | payer BC ==
[~2023-12-04] VITALS: Ht 154.9 cm; Wt 61.2 kg
[2023-12-04 22:03] VITALS: BP_SYST 112; PULSE 96; RESP 21; TEMP 97.7; O2SAT 97
[2023-12-04 23:02] LABS: BASOPHILS # (AUTO) 0.1 K/uL (0.0-0.2); BASOPHILS % (AUTO) 0.7 % (0.0-2.0); EOSINOPHILS # (AUTO) 0.2 K/uL (0.0-0.4); EOSINOPHILS % (AUTO) 2.6 % (0.0-4.0); HEMATOCRIT 28.6 % (36-48); HEMOGLOBIN 9.4 g/dL (12.0-16.0); LYMPHOCYTES # (AUTO) 1.3 K/uL (1.0-5.5); LYMPHOCYTES % (AUTO) 15.3 % (20.5-51.5); MEAN CORPUSCULAR HEMOGLOBIN 26 pg (27-31); MEAN CORPUSCULAR HGB CONC 33 % (32-36); MEAN CORPUSCULAR VOLUME 79 fL (79.0-98.0); MONOCYTES # (AUTO) 0.7 K/uL (0.0-1.0); MONOCYTES % (AUTO) 8.1 % (1.7-9.3); NEUTROPHILS # (AUTO) 6.1 K/uL (1.8-7.7); NEUTROPHILS % (AUTO) 73.3 % (40.0-70.0); PLATELET COUNT (AUTO) 369 K/uL (130-430); RED BLOOD CELL COUNT(AUTO) 3.61 MIL/uL (4.2-6.2); RED CELL DISTRIBUTION WIDTH 21.9 % (9.0-15.0); WHITE BLOOD COUNT (AUTO) 8.4 K/uL (4.8-10.8)
[2023-12-04 23:21] LABS: ALBUMIN 1.5 g/dL (3.4-4.8); BILIRUBIN,DIRECT 0.9 mg/dL (0.0-0.3); CALCIUM 8.1 mg/dL (8.4-11.0); CREATININE 0.42 mg/dL (0.55-1.30); TOTAL BILIRUBIN 1.1 mg/dL (0.0-1.0); TOTAL PROTEIN, SERUM 6.3 g/dL (6.4-8.3)
[2023-12-05] VITALS: BP_SYST 112; PULSE 93; RESP 21; TEMP 98; O2SAT 98
[2023-12-09] MEDS ORDERED: PYRI100T10 PO (01:21)
[2023-12-09] MEDS ORDERED: CYAN100T44 PO (01:21)
[2023-12-13] MEDS ORDERED: FURO-150 PO (15:01)
[2023-12-13] MEDS ORDERED: LEVO750T64 PO (15:04)
== END 2023-12-05 | disposition home or self-care (01) ==
LOC: SED 21:44
DX: R25.3 Fasciculation (principal); D49.6 Neoplasm of unspecified behavior of brain; E11.9 Type 2 diabetes mellitus without complications; Z79.4 Long term (current) use of insulin
CPT/HCPCS: 36415; 80048; 80076; 85025; 99283

== ENCOUNTER 2024-01-02 14:25 | Inpatient (IN) | payer BC ==
[~2024-01-02] VITALS: Ht 152.4 cm; Wt 45.1 kg
[2024-01-02] VITALS (11 sets, daily range): BP systolic 90–155; PULSE 99–215; RESP 16–17; TEMP 98.7–100.1; O2SAT 96–100
[~2024-01-02 14:25] MED LIST changes: -ANAS1TAB51 PO; -DEC4 PO; -ESCI10TA GT; +FURO-150 PO; -LACT1TAB14 GT; -LEVE100S PO; +LEVO750T64 PO; -ONDA8TAB60 PO; +PYRI100T10 PO; -SYN50 PO
[2024-01-02] MEDS ORDERED: ETOMIDATE 20 MG/ 10 ML VIAL (AMIDATE) ONE (14:40)
[2024-01-02] MEDS: NACL 0.9% 1,000 ML IV ONE (15:13)
[2024-01-02 15:16] LABS: ABG O2 SAT% ESTIMATE 99.9 % (94.0-100.0)
[2024-01-02 15:22] LABS: INFLUENZA TYPE A Negative (NEGATIVE); INFLUENZA TYPE B NEGATIVE (NEGATIVE)
[2024-01-02 15:26] LABS: BASOPHILS % (AUTO) 0.6 % (0.0-2.0); EOSINOPHILS % (AUTO) 0.2 % (0.0-4.0); HEMATOCRIT 28.4 % (36-48); HEMOGLOBIN 9.5 g/dL (12.0-16.0); LYMPHOCYTES # (AUTO) 0.6 K/uL (1.0-5.5); LYMPHOCYTES % (AUTO) 10.3 % (20.5-51.5); MEAN CORPUSCULAR HEMOGLOBIN 25 pg (27-31); MEAN CORPUSCULAR HGB CONC 33 % (32-36); MEAN CORPUSCULAR VOLUME 75 fL (79.0-98.0); MONOCYTES # (AUTO) 0.8 K/uL (0.0-1.0); MONOCYTES % (AUTO) 12.2 % (1.7-9.3); NEUTROPHILS # (AUTO) 4.8 K/uL (1.8-7.7); NEUTROPHILS % (AUTO) 76.7 % (40.0-70.0); PLATELET COUNT (AUTO) 683 K/uL (130-430); RED BLOOD CELL COUNT(AUTO) 3.78 MIL/uL (4.2-6.2); RED CELL DISTRIBUTION WIDTH 19.9 % (9.0-15.0); WHITE BLOOD COUNT (AUTO) 6.3 K/uL (4.8-10.8)
[2024-01-02 15:31] LABS: ALLEN'S TEST POSITIVE (P); BLOOD GAS BASE EXCESS 7.5 mmol/L (-3.0-3.0); BLOOD GAS PCO2 34.5 mmHg (35.0-45.0); BLOOD GAS PH 7.557 (7.350-7.450); BLOOD GAS PO2 435.7 mmHg (75.0-100.0)
[2024-01-02 15:36] LABS: INR 1.1 (0.8-1.2); PROTHROMBIN TIME 11.4 SECS (9.5-12.5)
[2024-01-02 15:42] LABS: ALANINE AMINOTRANSFERASE 16 U/L (12-78); ALBUMIN 1.5 g/dL (3.4-4.8); ANION GAP 6 (5-15); ASPARTATE AMINOTRANSFERASE 26 U/L (10-37); BILIRUBIN,DIRECT 0.3 mg/dL (0.0-0.3); CARBON DIOXIDE 29 mmol/L (23-29); CHLORIDE 90 mmol/L (98-107); CREATININE 0.43 mg/dL (0.55-1.30); GFR AFRICAN AMERICAN 187 mL/min (>90); GFR NON AFRICAN-AMERICAN 154 mL/min (>90); GLUCOSE 161 mg/dL (74-106); SODIUM SERUM 125 mmol/L (136-145); TOTAL BILIRUBIN 0.5 mg/dL (0.0-1.0); TOTAL PROTEIN, SERUM 6.7 g/dL (6.4-8.3); UREA NITROGEN, BLOOD 8 mg/dL (8-21)
[2024-01-02 15:43] LABS: POTASSIUM 2.6 mmol/L (3.5-5.1)
[2024-01-02] MEDS ORDERED: PIPERACILLIN/TAZOBACTAM 3.375 GM/VIAL (ZOSYN) IV ONE (15:45)
[2024-01-02] MEDS: PIPERACILLIN/TAZO 3.375 GM in NS 50 ML IV ONE (15:50)
[2024-01-02] MEDS: POTASSIUM CHLORIDE 20 MEQ/PKT PACKET GT ONE (16:31)
[2024-01-02] MEDS: METOPROLOL TARTRATE 5 MG/5 ML VIAL IVP ONE (17:10)
[2024-01-02] MEDS ORDERED: ALBUTEROL SULFATE 0.083% 2.5 MG/3 ML VIAL.NEB INH PRN (17:15)
[2024-01-02] MEDS ORDERED: GLUCOSE (DEXTROSE) ORAL GEL -Adults PO PRN (17:15)
[2024-01-02] MEDS ORDERED: HYDROcodone/ACETAMIN 10-325 MG TAB PO PRN (17:15)
[2024-01-02] MEDS ORDERED: DEXTROSE 50% JECT 50 ML DISP.SYRIN IVP PRN (17:15)
[2024-01-02] MEDS ORDERED: MORPHINE 2 MG/ML INJ. SYRINGE IVP PRN (17:15)
[2024-01-02] MEDS ORDERED: PIPERACILLIN/TAZO 3.375/DEX-IS 50 ML IV SCH (18:00)
[2024-01-02] MEDS: ALBUMIN HUMAN 25% 100 ML IV ONE (18:14)
[2024-01-02] MEDS ORDERED: VANCOMYCIN HCL 1000 MG/VIAL IV ONE (18:20)
[2024-01-02] MEDS ORDERED: PROPOFOL DRIP 100 ML IV PRN (19:00)
[2024-01-02] MEDS: VANCOMYCIN HCL 1,000 MG in NS 250 ML IV ONE (19:35)
[2024-01-02] MEDS ORDERED: NON-FORMULARY MEDICATION (Levetiracetam 500 MG) PO SCH (21:00)
[2024-01-02] MEDS: KCL 20 mEq in 100 mL (PREMIX) 100 ML IV ONE (21:17)
[2024-01-02] MEDS: levETIRAcetam 500 MG TABLET PO SCH (21:17)
[2024-01-02] MEDS: NACL 0.9% 1,000 ML IV SCH (21:22)
[2024-01-02] MEDS: ONDANSETRON HCL 4 MG/2 ML VIAL IVP PRN (21:56)
[2024-01-02] MEDS: PIPERACILLIN/TAZOBACTAM 3.375 GM/VIAL (ZOSYN) IV ONE (22:33)
[2024-01-02] MEDS: PIPERACILLIN/TAZO 3.375/DEX-IS 50 ML IV SCH (22:38)
[2024-01-02 23:34] LABS: BILIRUBIN,URINE NEGATIVE (NEGATIVE); BLOOD, URINE NEGATIVE (NEGATIVE); COLOR,URINE YELLOW (YELLOW); GLUCOSE,URINE NEGATIVE (NEGATIVE); KETONES,URINE NEGATIVE (NEGATIVE); NITRITE, URINE NEGATIVE (NEGATIVE); PROTEIN URINE TRACE (NEGATIVE); UROBILINOGEN,URINE 0.2 (0.2-1.0)
[2024-01-03] VITALS (36 sets, daily range): BP systolic 109–148; PULSE 94–106; RESP 12–19; TEMP 97.8–98.4; O2SAT 97–100
[2024-01-03 00:05] LABS: CLARITY/URINE SLIGHTLY CLOUDY (CLEAR); LEUKOCYTE ESTERASE ,URINE TRACE (NEGATIVE)
[2024-01-03 00:06] LABS: BACTERIA,URINE FEW /HPF (None Seen); RBC,URINE 0-3 /HPF (0-3)
[2024-01-03 04:34] LABS: BASOPHILS % (AUTO) 0.2 % (0.0-2.0); EOSINOPHILS % (AUTO) 0.3 % (0.0-4.0); HEMOGLOBIN 7.6 g/dL (12.0-16.0); LYMPHOCYTES # (AUTO) 0.9 K/uL (1.0-5.5); LYMPHOCYTES % (AUTO) 15.5 % (20.5-51.5); MEAN CORPUSCULAR HEMOGLOBIN 25 pg (27-31); MEAN CORPUSCULAR HGB CONC 33 % (32-36); MEAN CORPUSCULAR VOLUME 76 fL (79.0-98.0); MONOCYTES # (AUTO) 0.7 K/uL (0.0-1.0); NEUTROPHILS # (AUTO) 4.4 K/uL (1.8-7.7); PLATELET COUNT (AUTO) 556 K/uL (130-430); RED BLOOD CELL COUNT(AUTO) 3.04 MIL/uL (4.2-6.2); WHITE BLOOD COUNT (AUTO) 6.1 K/uL (4.8-10.8)
[2024-01-03 05:20] LABS: ALBUMIN 1.7 g/dL (3.4-4.8); CALCIUM 7.7 mg/dL (8.4-11.0); CREATININE 0.32 mg/dL (0.55-1.30); TOTAL BILIRUBIN 0.5 mg/dL (0.0-1.0); TOTAL PROTEIN, SERUM 5.9 g/dL (6.4-8.3)
[2024-01-03 05:31] LABS: POTASSIUM 2.9 mmol/L (3.5-5.1)
[2024-01-03] MEDS: LEVOTHYROXINE SODIUM 0.05 MG TABLET PO SCH (09:00)
[2024-01-03] MEDS: GASTROGRAFIN 120 ML GT ONE (09:00)
[2024-01-03] MEDS: levETIRAcetam 500 MG in NS 100 ML IV SCH (09:08)
[2024-01-03] MEDS ORDERED: GASTROGRAFIN 120 ML ONE (09:15)
[2024-01-03 10:19] LABS: ABG O2 SAT% ESTIMATE 97.9 % (94.0-100.0); BLOOD GAS BASE EXCESS 8.1 mmol/L (-3.0-3.0); BLOOD GAS HCO3 30.3 mmol/L (21.0-27.0); BLOOD GAS PCO2 33.1 mmHg (35.0-45.0)
[2024-01-03 10:34] LABS: ALLEN'S TEST POSITIVE (P); BLOOD GAS PH 7.579 (7.350-7.450)
[2024-01-03] MEDS: KCL 40 mEq in 100 mL (PREMIX) 100 ML IV ONE (10:47)
[2024-01-03] MEDS: AZITHROMYCIN 500 MG in NS 250 ML IV ONE (15:12)
[2024-01-03] MEDS: METOCLOPRAMIDE HCL 10 MG/2 ML VIAL IVP SCH (17:16)
[2024-01-03] MEDS: NACL 0.9% 1,000 ML IV ONE (18:36)
[2024-01-03] MEDS: SCOPOLAMINE HYDROBROMIDE 1 MG PATCH .72 H (TRANSDERM-SCOP) TD SCH (18:36)
[2024-01-03] MEDS: PEG 400/HYPROMELLOSE/GLYCERIN 15 ML DROPS OP PRN (18:37)
[2024-01-04] VITALS (36 sets, daily range): BP systolic 107–156; PULSE 83–106; RESP 9–21; TEMP 96.8–97.9; O2SAT 97–100
[2024-01-04 06:07] LABS: ERYTHROCYTE SEDIMENTATION RATE 87 MM/HR (0-20)
[2024-01-04 06:15] LABS: BASOPHILS # (AUTO) 0.1 K/uL (0.0-0.2); BASOPHILS % (AUTO) 0.6 % (0.0-2.0); EOSINOPHILS % (AUTO) 0.4 % (0.0-4.0); HEMATOCRIT 22.7 % (36-48); HEMOGLOBIN 7.6 g/dL (12.0-16.0); LYMPHOCYTES % (AUTO) 9.9 % (20.5-51.5); MEAN CORPUSCULAR HEMOGLOBIN 26 pg (27-31); MEAN CORPUSCULAR HGB CONC 34 % (32-36); MEAN CORPUSCULAR VOLUME 77 fL (79.0-98.0); MONOCYTES # (AUTO) 0.9 K/uL (0.0-1.0); MONOCYTES % (AUTO) 9.3 % (1.7-9.3); NEUTROPHILS # (AUTO) 7.9 K/uL (1.8-7.7); NEUTROPHILS % (AUTO) 79.8 % (40.0-70.0); PLATELET COUNT (AUTO) 599 K/uL (130-430); RED BLOOD CELL COUNT(AUTO) 2.95 MIL/uL (4.2-6.2); RED CELL DISTRIBUTION WIDTH 19.8 % (9.0-15.0); WHITE BLOOD COUNT (AUTO) 9.9 K/uL (4.8-10.8)
[2024-01-04 06:54] LABS: CALCIUM 7.9 mg/dL (8.4-11.0); CREATININE 0.33 mg/dL (0.55-1.30)
[2024-01-04] MEDS: NS 500 ML IV ONE (07:05)
[2024-01-04 07:12] LABS: POTASSIUM 2.7 mmol/L (3.5-5.1)
[2024-01-04 07:55] LABS: ABG O2 SAT% ESTIMATE 98.2 % (94.0-100.0); BLOOD GAS BASE EXCESS 0.7 mmol/L (-3.0-3.0); BLOOD GAS HCO3 23.9 mmol/L (21.0-27.0); BLOOD GAS PCO2 32.8 mmHg (35.0-45.0); BLOOD GAS PH 7.481 (7.350-7.450); BLOOD GAS PO2 106.6 mmHg (75.0-100.0)
[2024-01-04 07:58] LABS: ALLEN'S TEST POSITIVE (P)
[2024-01-04] MEDS: POTASSIUM CHLORIDE 20 MEQ/PKT PACKET GT SCH (08:49)
[2024-01-04] MEDS: PANTOPRAZOLE SODIUM 40 MG/VIAL (PROTONIX) IVP SCH (08:50)
[2024-01-04] MEDS: KCL 40 mEq in 100 mL (PREMIX) 100 ML IV ONE (08:55)
[2024-01-04] MEDS ORDERED: ENOXAPARIN SODIUM 40 MG/0.4 ML SYRINGE SUBCUT SCH (09:00)
[2024-01-04] MEDS: HEPARIN SODIUM,PORCINE 5,000 UNITS/ML VIAL SUBCUT ONE (09:19)
[2024-01-04] MEDS: CALCIUM GLUC 2 GM/100ML-NACL 100 ML IV ONE (11:39)
[2024-01-04] MEDS: AZITHROMYCIN 250 MG in NS 250 ML IV SCH (11:40)
[2024-01-04] MEDS: ENOXAPARIN SODIUM 40 MG/0.4 ML SYRINGE SUBCUT ONE (11:41)
[2024-01-04] MEDS: IPRATROPIUM BROM 0.5 MG/2.5 ML VIAL.NEB (ATROVENT) INH SCH (13:18)
[2024-01-04] MEDS ORDERED: HEPARIN SODIUM,PORCINE 5,000 UNITS/ML VIAL SUBCUT SCH (21:00)
[2024-01-04] MEDS: INSULIN REGULAR, HUMAN 100 UNITS/ML, 3 ML VIAL (humuLIN R) SUBCUT PRN (21:25)
[2024-01-05] VITALS (37 sets, daily range): BP systolic 120–189; PULSE 84–111; RESP 12–24; TEMP 97.4–98.2; O2SAT 95–100
[2024-01-05 04:29] LABS: ERYTHROCYTE SEDIMENTATION RATE 82 MM/HR (0-20)
[2024-01-05 04:40] LABS: BASOPHILS % (AUTO) 0.2 % (0.0-2.0); EOSINOPHILS # (AUTO) 0.1 K/uL (0.0-0.4); EOSINOPHILS % (AUTO) 0.6 % (0.0-4.0); HEMOGLOBIN 7.9 g/dL (12.0-16.0); LYMPHOCYTES # (AUTO) 1.1 K/uL (1.0-5.5); LYMPHOCYTES % (AUTO) 9.6 % (20.5-51.5); MEAN CORPUSCULAR HEMOGLOBIN 25 pg (27-31); MEAN CORPUSCULAR HGB CONC 33 % (32-36); MEAN CORPUSCULAR VOLUME 77 fL (79.0-98.0); MONOCYTES % (AUTO) 8.8 % (1.7-9.3); NEUTROPHILS # (AUTO) 9.3 K/uL (1.8-7.7); NEUTROPHILS % (AUTO) 80.8 % (40.0-70.0); PLATELET COUNT (AUTO) 739 K/uL (130-430); RED BLOOD CELL COUNT(AUTO) 3.13 MIL/uL (4.2-6.2); WHITE BLOOD COUNT (AUTO) 11.5 K/uL (4.8-10.8)
[2024-01-05 05:27] LABS: ALBUMIN 1.4 g/dL (3.4-4.8); CALCIUM 8.4 mg/dL (8.4-11.0); CREATININE 0.39 mg/dL (0.55-1.30); TOTAL BILIRUBIN 0.5 mg/dL (0.0-1.0); TOTAL PROTEIN, SERUM 5.8 g/dL (6.4-8.3)
[2024-01-05] MEDS: ENOXAPARIN SODIUM 40 MG/0.4 ML SYRINGE SUBCUT SCH (09:26)
[2024-01-05] MEDS: CEFEPIME 1 GM in D5W 50 ML IV SCH (21:31)
[2024-01-06] VITALS (36 sets, daily range): BP systolic 118–160; PULSE 91–115; RESP 12–23; TEMP 97.5–98.2; O2SAT 92–100
[2024-01-06 04:29] LABS: ERYTHROCYTE SEDIMENTATION RATE 83 MM/HR (0-20)
[2024-01-06 04:38] LABS: BASOPHILS % (AUTO) 0.2 % (0.0-2.0); EOSINOPHILS # (AUTO) 0.1 K/uL (0.0-0.4); EOSINOPHILS % (AUTO) 0.7 % (0.0-4.0); HEMATOCRIT 22.9 % (36-48); HEMOGLOBIN 7.5 g/dL (12.0-16.0); LYMPHOCYTES # (AUTO) 0.9 K/uL (1.0-5.5); LYMPHOCYTES % (AUTO) 10.7 % (20.5-51.5); MEAN CORPUSCULAR HEMOGLOBIN 25 pg (27-31); MEAN CORPUSCULAR HGB CONC 33 % (32-36); MEAN CORPUSCULAR VOLUME 76 fL (79.0-98.0); MONOCYTES # (AUTO) 0.8 K/uL (0.0-1.0); MONOCYTES % (AUTO) 8.7 % (1.7-9.3); NEUTROPHILS # (AUTO) 6.8 K/uL (1.8-7.7); NEUTROPHILS % (AUTO) 79.7 % (40.0-70.0); PLATELET COUNT (AUTO) 574 K/uL (130-430); RED BLOOD CELL COUNT(AUTO) 3.01 MIL/uL (4.2-6.2); RED CELL DISTRIBUTION WIDTH 19.9 % (9.0-15.0); WHITE BLOOD COUNT (AUTO) 8.6 K/uL (4.8-10.8)
[2024-01-06 05:04] LABS: CREATININE 0.29 mg/dL (0.55-1.30); POTASSIUM 3.4 mmol/L (3.5-5.1)
[2024-01-06] MEDS: POTASSIUM CHLORIDE 20 MEQ/PKT PACKET GT ONE (09:22)
[2024-01-06] MEDS: CALCIUM GLUC 2 GM/100ML-NACL 100 ML IV ONE (10:00)
[2024-01-06] MEDS: NS 250 ML IV ONE (11:14)
[2024-01-07] VITALS (36 sets, daily range): BP systolic 120–157; PULSE 95–118; RESP 12–30; TEMP 97.8–98.6; O2SAT 98–100
[2024-01-07 07:19] LABS: ALBUMIN 1.3 g/dL (3.4-4.8); CALCIUM 8.2 mg/dL (8.4-11.0); CREATININE 0.42 mg/dL (0.55-1.30); PHOSPHORUS 1.2 mg/dL (2.7-4.5); POTASSIUM 3.8 mmol/L (3.5-5.1); TOTAL BILIRUBIN 0.3 mg/dL (0.0-1.0); TOTAL PROTEIN, SERUM 5.9 g/dL (6.4-8.3)
[2024-01-07 07:27] LABS: BASOPHILS # (AUTO) 0.1 K/uL (0.0-0.2); BASOPHILS % (AUTO) 0.6 % (0.0-2.0); EOSINOPHILS # (AUTO) 0.1 K/uL (0.0-0.4); EOSINOPHILS % (AUTO) 1.2 % (0.0-4.0); HEMATOCRIT 24.9 % (36-48); HEMOGLOBIN 8.1 g/dL (12.0-16.0); LYMPHOCYTES # (AUTO) 1.5 K/uL (1.0-5.5); LYMPHOCYTES % (AUTO) 15.9 % (20.5-51.5); MEAN CORPUSCULAR HEMOGLOBIN 25 pg (27-31); MEAN CORPUSCULAR HGB CONC 33 % (32-36); MEAN CORPUSCULAR VOLUME 76 fL (79.0-98.0); MONOCYTES % (AUTO) 10.2 % (1.7-9.3); NEUTROPHILS # (AUTO) 6.8 K/uL (1.8-7.7); NEUTROPHILS % (AUTO) 72.1 % (40.0-70.0); PLATELET COUNT (AUTO) 650 K/uL (130-430); RED BLOOD CELL COUNT(AUTO) 3.28 MIL/uL (4.2-6.2); WHITE BLOOD COUNT (AUTO) 9.4 K/uL (4.8-10.8)
[2024-01-07 08:04] LABS: ERYTHROCYTE SEDIMENTATION RATE 117 MM/HR (0-20)
[2024-01-07] MEDS ORDERED: CALCIUM GLUCONATE 2 GM in NS 100 ML IV ONE (08:30)
[2024-01-07] MEDS: CALCIUM GLUC 2 GM/100ML-NACL 100 ML IV ONE (11:43)
[2024-01-07] MEDS: NA PHOS 15 MM in NS 250 ML IV ONE (13:39)
[2024-01-07] MEDS: NORMAL SALINE 5 ML DISP.SYRIN IVF SCH (13:50)
[2024-01-08] VITALS (38 sets, daily range): BP systolic 131–154; PULSE 96–119; RESP 19–32; TEMP 98.6–98.9; O2SAT 96–100
[2024-01-08 05:40] LABS: BASOPHILS % (AUTO) 0.4 % (0.0-2.0); EOSINOPHILS # (AUTO) 0.2 K/uL (0.0-0.4); EOSINOPHILS % (AUTO) 2.1 % (0.0-4.0); HEMATOCRIT 23.8 % (36-48); HEMOGLOBIN 7.6 g/dL (12.0-16.0); LYMPHOCYTES # (AUTO) 1.3 K/uL (1.0-5.5); LYMPHOCYTES % (AUTO) 14.3 % (20.5-51.5); MEAN CORPUSCULAR HEMOGLOBIN 25 pg (27-31); MEAN CORPUSCULAR HGB CONC 32 % (32-36); MEAN CORPUSCULAR VOLUME 77 fL (79.0-98.0); MONOCYTES # (AUTO) 0.9 K/uL (0.0-1.0); MONOCYTES % (AUTO) 9.6 % (1.7-9.3); NEUTROPHILS # (AUTO) 6.8 K/uL (1.8-7.7); NEUTROPHILS % (AUTO) 73.6 % (40.0-70.0); PLATELET COUNT (AUTO) 482 K/uL (130-430); RED BLOOD CELL COUNT(AUTO) 3.09 MIL/uL (4.2-6.2); RED CELL DISTRIBUTION WIDTH 20.1 % (9.0-15.0); WHITE BLOOD COUNT (AUTO) 9.3 K/uL (4.8-10.8)
[2024-01-08 06:02] LABS: ALBUMIN 1.2 g/dL (3.4-4.8); CALCIUM 8.1 mg/dL (8.4-11.0); CREATININE 0.32 mg/dL (0.55-1.30); POTASSIUM 3.8 mmol/L (3.5-5.1); TOTAL BILIRUBIN 0.3 mg/dL (0.0-1.0); TOTAL PROTEIN, SERUM 5.6 g/dL (6.4-8.3)
[2024-01-08 07:53] LABS: ERYTHROCYTE SEDIMENTATION RATE > 130 MM/HR (0-20)
[2024-01-09] VITALS (32 sets, daily range): BP systolic 116–142; PULSE 79–124; RESP 13–31; TEMP 98.4–99.1; O2SAT 96–100
[2024-01-09 06:16] LABS: BASOPHILS % (AUTO) 0.4 % (0.0-2.0); EOSINOPHILS # (AUTO) 0.1 K/uL (0.0-0.4); EOSINOPHILS % (AUTO) 1.1 % (0.0-4.0); LYMPHOCYTES # (AUTO) 1.4 K/uL (1.0-5.5); LYMPHOCYTES % (AUTO) 13.3 % (20.5-51.5); MEAN CORPUSCULAR HEMOGLOBIN 25 pg (27-31); MEAN CORPUSCULAR HGB CONC 32 % (32-36); MEAN CORPUSCULAR VOLUME 77 fL (79.0-98.0); MONOCYTES # (AUTO) 0.9 K/uL (0.0-1.0); MONOCYTES % (AUTO) 8.4 % (1.7-9.3); NEUTROPHILS # (AUTO) 8.3 K/uL (1.8-7.7); NEUTROPHILS % (AUTO) 76.8 % (40.0-70.0); PLATELET COUNT (AUTO) 461 K/uL (130-430); RED BLOOD CELL COUNT(AUTO) 3.26 MIL/uL (4.2-6.2); RED CELL DISTRIBUTION WIDTH 20.9 % (9.0-15.0); WHITE BLOOD COUNT (AUTO) 10.9 K/uL (4.8-10.8)
[2024-01-09 06:34] LABS: CALCIUM 8.2 mg/dL (8.4-11.0); CREATININE 0.34 mg/dL (0.55-1.30); POTASSIUM 3.7 mmol/L (3.5-5.1)
[2024-01-09 07:21] LABS: ERYTHROCYTE SEDIMENTATION RATE 107 MM/HR (0-20)
[2024-01-09 09:11] LABS: ABG O2 SAT% ESTIMATE 98.3 % (94.0-100.0); BLOOD GAS PO2 103.7 mmHg (75.0-100.0)
[2024-01-09 09:25] LABS: ALLEN'S TEST POSITIVE (P)
[2024-01-09 09:42] LABS: BLOOD GAS BASE EXCESS -1.9 mmol/L (-3.0-3.0); BLOOD GAS HCO3 20.6 mmol/L (21.0-27.0); BLOOD GAS PCO2 26.7 mmHg (35.0-45.0); BLOOD GAS PH 7.505 (7.350-7.450)
[2024-01-09] MEDS: CALCIUM GLUC 2 GM/100ML-NACL 100 ML IV ONE (10:24)
[2024-01-09] MEDS: ACETAMINOPHEN 325 MG TABLET PO PRN (13:33)
[2024-01-10] VITALS (37 sets, daily range): BP systolic 100–140; PULSE 74–109; RESP 12–30; TEMP 97–98.9; O2SAT 98–100
[2024-01-10 05:45] LABS: BASOPHILS # (AUTO) 0.1 K/uL (0.0-0.2); BASOPHILS % (AUTO) 0.7 % (0.0-2.0); EOSINOPHILS # (AUTO) 0.2 K/uL (0.0-0.4); EOSINOPHILS % (AUTO) 1.8 % (0.0-4.0); HEMATOCRIT 25.4 % (36-48); HEMOGLOBIN 7.9 g/dL (12.0-16.0); LYMPHOCYTES # (AUTO) 1.8 K/uL (1.0-5.5); LYMPHOCYTES % (AUTO) 15.6 % (20.5-51.5); MEAN CORPUSCULAR HEMOGLOBIN 24 pg (27-31); MEAN CORPUSCULAR HGB CONC 31 % (32-36); MEAN CORPUSCULAR VOLUME 77 fL (79.0-98.0); MONOCYTES % (AUTO) 8.9 % (1.7-9.3); NEUTROPHILS # (AUTO) 8.3 K/uL (1.8-7.7); PLATELET COUNT (AUTO) 433 K/uL (130-430); RED BLOOD CELL COUNT(AUTO) 3.29 MIL/uL (4.2-6.2); RED CELL DISTRIBUTION WIDTH 20.7 % (9.0-15.0); WHITE BLOOD COUNT (AUTO) 11.3 K/uL (4.8-10.8)
[2024-01-10 06:04] LABS: ALBUMIN 1.2 g/dL (3.4-4.8); CALCIUM 8.4 mg/dL (8.4-11.0); CREATININE 0.34 mg/dL (0.55-1.30); POTASSIUM 3.8 mmol/L (3.5-5.1); TOTAL BILIRUBIN 0.3 mg/dL (0.0-1.0); TOTAL PROTEIN, SERUM 5.8 g/dL (6.4-8.3)
[2024-01-10 06:05] LABS: ERYTHROCYTE SEDIMENTATION RATE 111 MM/HR (0-20)
[2024-01-11] VITALS (36 sets, daily range): BP systolic 102–156; PULSE 91–121; RESP 14–33; TEMP 97.6–98; O2SAT 95–100
[2024-01-11 06:04] LABS: BASOPHILS # (AUTO) 0.1 K/uL (0.0-0.2); BASOPHILS % (AUTO) 0.6 % (0.0-2.0); EOSINOPHILS # (AUTO) 0.2 K/uL (0.0-0.4); EOSINOPHILS % (AUTO) 1.8 % (0.0-4.0); HEMATOCRIT 25.7 % (36-48); LYMPHOCYTES # (AUTO) 1.6 K/uL (1.0-5.5); LYMPHOCYTES % (AUTO) 15.8 % (20.5-51.5); MEAN CORPUSCULAR HEMOGLOBIN 24 pg (27-31); MEAN CORPUSCULAR HGB CONC 31 % (32-36); MEAN CORPUSCULAR VOLUME 78 fL (79.0-98.0); MONOCYTES # (AUTO) 0.9 K/uL (0.0-1.0); MONOCYTES % (AUTO) 8.3 % (1.7-9.3); NEUTROPHILS # (AUTO) 7.6 K/uL (1.8-7.7); NEUTROPHILS % (AUTO) 73.5 % (40.0-70.0); PLATELET COUNT (AUTO) 411 K/uL (130-430); RED CELL DISTRIBUTION WIDTH 21.3 % (9.0-15.0); WHITE BLOOD COUNT (AUTO) 10.4 K/uL (4.8-10.8)
[2024-01-11 06:26] LABS: ALBUMIN 1.2 g/dL (3.4-4.8); CALCIUM 8.2 mg/dL (8.4-11.0); CREATININE 0.29 mg/dL (0.55-1.30); POTASSIUM 3.7 mmol/L (3.5-5.1); TOTAL BILIRUBIN 0.3 mg/dL (0.0-1.0); TOTAL PROTEIN, SERUM 5.8 g/dL (6.4-8.3)
[2024-01-11] MEDS: HYDROcodone/ACETAMIN 5-325 MG TAB (NORCO/ VICODIN) PO PRN (08:11)
[2024-01-11] MEDS: PANTOPRAZOLE SODIUM 40 MG/VIAL (PROTONIX) ONE (08:12)
[2024-01-12] VITALS (39 sets, daily range): BP systolic 122–162; PULSE 103–115; RESP 12–30; TEMP 97.6–98; O2SAT 96–100
[2024-01-12 05:27] LABS: BASOPHILS # (AUTO) 0.1 K/uL (0.0-0.2); BASOPHILS % (AUTO) 0.8 % (0.0-2.0); EOSINOPHILS # (AUTO) 0.1 K/uL (0.0-0.4); EOSINOPHILS % (AUTO) 1.2 % (0.0-4.0); HEMATOCRIT 24.9 % (36-48); LYMPHOCYTES # (AUTO) 1.4 K/uL (1.0-5.5); LYMPHOCYTES % (AUTO) 15.3 % (20.5-51.5); MEAN CORPUSCULAR HEMOGLOBIN 25 pg (27-31); MEAN CORPUSCULAR HGB CONC 32 % (32-36); MEAN CORPUSCULAR VOLUME 77 fL (79.0-98.0); MONOCYTES # (AUTO) 0.8 K/uL (0.0-1.0); MONOCYTES % (AUTO) 8.2 % (1.7-9.3); NEUTROPHILS # (AUTO) 6.9 K/uL (1.8-7.7); NEUTROPHILS % (AUTO) 74.5 % (40.0-70.0); PLATELET COUNT (AUTO) 382 K/uL (130-430); RED BLOOD CELL COUNT(AUTO) 3.25 MIL/uL (4.2-6.2); RED CELL DISTRIBUTION WIDTH 20.7 % (9.0-15.0); WHITE BLOOD COUNT (AUTO) 9.3 K/uL (4.8-10.8)
[2024-01-12 06:20] LABS: ALBUMIN 1.2 g/dL (3.4-4.8); CALCIUM 8.2 mg/dL (8.4-11.0); CREATININE 0.33 mg/dL (0.55-1.30); POTASSIUM 3.9 mmol/L (3.5-5.1); TOTAL BILIRUBIN 0.3 mg/dL (0.0-1.0); TOTAL PROTEIN, SERUM 5.9 g/dL (6.4-8.3)
[2024-01-13] VITALS (35 sets, daily range): BP systolic 103–153; PULSE 94–125; RESP 15–40; TEMP 97.1–98.2; O2SAT 98–100
[2024-01-13 04:50] LABS: BASOPHILS # (AUTO) 0.1 K/uL (0.0-0.2); BASOPHILS % (AUTO) 0.5 % (0.0-2.0); EOSINOPHILS # (AUTO) 0.1 K/uL (0.0-0.4); EOSINOPHILS % (AUTO) 0.7 % (0.0-4.0); HEMATOCRIT 24.1 % (36-48); HEMOGLOBIN 7.7 g/dL (12.0-16.0); LYMPHOCYTES # (AUTO) 1.3 K/uL (1.0-5.5); LYMPHOCYTES % (AUTO) 11.2 % (20.5-51.5); MEAN CORPUSCULAR HEMOGLOBIN 24 pg (27-31); MEAN CORPUSCULAR HGB CONC 32 % (32-36); MEAN CORPUSCULAR VOLUME 77 fL (79.0-98.0); MONOCYTES % (AUTO) 8.8 % (1.7-9.3); NEUTROPHILS # (AUTO) 8.9 K/uL (1.8-7.7); NEUTROPHILS % (AUTO) 78.8 % (40.0-70.0); PLATELET COUNT (AUTO) 363 K/uL (130-430); RED BLOOD CELL COUNT(AUTO) 3.13 MIL/uL (4.2-6.2); RED CELL DISTRIBUTION WIDTH 21.6 % (9.0-15.0); WHITE BLOOD COUNT (AUTO) 11.3 K/uL (4.8-10.8)
[2024-01-13 04:59] LABS: ALBUMIN 1.1 g/dL (3.4-4.8); CALCIUM 7.8 mg/dL (8.4-11.0); CREATININE 0.29 mg/dL (0.55-1.30); POTASSIUM 3.7 mmol/L (3.5-5.1); TOTAL BILIRUBIN 0.3 mg/dL (0.0-1.0); TOTAL PROTEIN, SERUM 5.6 g/dL (6.4-8.3)
[2024-01-14] VITALS (37 sets, daily range): BP systolic 107–143; PULSE 94–117; RESP 17–29; TEMP 97.4–98.9; O2SAT 97–100
[2024-01-14 06:55] LABS: BASOPHILS # (AUTO) 0.1 K/uL (0.0-0.2); BASOPHILS % (AUTO) 0.4 % (0.0-2.0); EOSINOPHILS # (AUTO) 0.1 K/uL (0.0-0.4); EOSINOPHILS % (AUTO) 0.5 % (0.0-4.0); HEMATOCRIT 24.6 % (36-48); HEMOGLOBIN 7.8 g/dL (12.0-16.0); LYMPHOCYTES # (AUTO) 1.2 K/uL (1.0-5.5); MEAN CORPUSCULAR HEMOGLOBIN 24 pg (27-31); MEAN CORPUSCULAR HGB CONC 32 % (32-36); MEAN CORPUSCULAR VOLUME 77 fL (79.0-98.0); MONOCYTES % (AUTO) 7.6 % (1.7-9.3); NEUTROPHILS # (AUTO) 10.9 K/uL (1.8-7.7); NEUTROPHILS % (AUTO) 82.5 % (40.0-70.0); PLATELET COUNT (AUTO) 359 K/uL (130-430); RED BLOOD CELL COUNT(AUTO) 3.21 MIL/uL (4.2-6.2); RED CELL DISTRIBUTION WIDTH 21.7 % (9.0-15.0); WHITE BLOOD COUNT (AUTO) 13.2 K/uL (4.8-10.8)
[2024-01-14 07:16] LABS: ALBUMIN 1.1 g/dL (3.4-4.8); CREATININE 0.32 mg/dL (0.55-1.30); POTASSIUM 3.8 mmol/L (3.5-5.1); TOTAL BILIRUBIN 0.3 mg/dL (0.0-1.0); TOTAL PROTEIN, SERUM 5.9 g/dL (6.4-8.3)
[2024-01-14] MEDS: levETIRAcetam 500 MG IV PREMIX 100 ML IV SCH (21:23)
[2024-01-15] VITALS (38 sets, daily range): BP systolic 104–146; PULSE 85–114; RESP 12–31; TEMP 97.6–98.3; O2SAT 96–100
[2024-01-15 06:03] LABS: BASOPHILS % (AUTO) 0.4 % (0.0-2.0); EOSINOPHILS % (AUTO) 0.3 % (0.0-4.0); HEMATOCRIT 23.4 % (36-48); HEMOGLOBIN 7.4 g/dL (12.0-16.0); LYMPHOCYTES # (AUTO) 1.2 K/uL (1.0-5.5); LYMPHOCYTES % (AUTO) 10.4 % (20.5-51.5); MEAN CORPUSCULAR HEMOGLOBIN 24 pg (27-31); MEAN CORPUSCULAR HGB CONC 32 % (32-36); MEAN CORPUSCULAR VOLUME 77 fL (79.0-98.0); MONOCYTES # (AUTO) 0.9 K/uL (0.0-1.0); NEUTROPHILS # (AUTO) 9.5 K/uL (1.8-7.7); NEUTROPHILS % (AUTO) 80.9 % (40.0-70.0); PLATELET COUNT (AUTO) 387 K/uL (130-430); RED BLOOD CELL COUNT(AUTO) 3.05 MIL/uL (4.2-6.2); RED CELL DISTRIBUTION WIDTH 21.1 % (9.0-15.0); WHITE BLOOD COUNT (AUTO) 11.7 K/uL (4.8-10.8)
[2024-01-15 06:35] LABS: CALCIUM 7.9 mg/dL (8.4-11.0); CREATININE 0.34 mg/dL (0.55-1.30); POTASSIUM 3.7 mmol/L (3.5-5.1); TOTAL BILIRUBIN 0.2 mg/dL (0.0-1.0); TOTAL PROTEIN, SERUM 5.8 g/dL (6.4-8.3)
[2024-01-16] VITALS (35 sets, daily range): BP systolic 117–150; PULSE 95–119; RESP 12–31; TEMP 97.3–98.5; O2SAT 98–100
[2024-01-16] MEDS: levETIRAcetam 500 MG TABLET ONE (04:38)
[2024-01-16] MEDS: LevETIRAcetam 500 MG/5 ML UDC ORAL LIQUID GT ONE (04:38)
[2024-01-16] MEDS: LevETIRAcetam 500 MG/5 ML UDC ORAL LIQUID ONE (04:38)
[2024-01-16] MEDS: LORazepam 2 MG/ML VIAL IVP ONE (05:40)
[2024-01-16 06:12] LABS: BASOPHILS % (AUTO) 0.5 % (0.0-2.0); EOSINOPHILS # (AUTO) 0.1 K/uL (0.0-0.4); EOSINOPHILS % (AUTO) 0.8 % (0.0-4.0); HEMATOCRIT 23.4 % (36-48); HEMOGLOBIN 7.5 g/dL (12.0-16.0); LYMPHOCYTES # (AUTO) 1.4 K/uL (1.0-5.5); LYMPHOCYTES % (AUTO) 13.5 % (20.5-51.5); MEAN CORPUSCULAR HEMOGLOBIN 25 pg (27-31); MEAN CORPUSCULAR HGB CONC 32 % (32-36); MEAN CORPUSCULAR VOLUME 76 fL (79.0-98.0); MONOCYTES # (AUTO) 0.9 K/uL (0.0-1.0); MONOCYTES % (AUTO) 8.3 % (1.7-9.3); NEUTROPHILS # (AUTO) 8.2 K/uL (1.8-7.7); NEUTROPHILS % (AUTO) 76.9 % (40.0-70.0); PLATELET COUNT (AUTO) 389 K/uL (130-430); RED BLOOD CELL COUNT(AUTO) 3.07 MIL/uL (4.2-6.2); WHITE BLOOD COUNT (AUTO) 10.6 K/uL (4.8-10.8)
[2024-01-16] MEDS: LORazepam 2 MG/ML VIAL ONE (06:31)
[2024-01-16 07:14] LABS: CALCIUM 7.9 mg/dL (8.4-11.0); CREATININE 0.27 mg/dL (0.55-1.30); POTASSIUM 3.8 mmol/L (3.5-5.1); TOTAL BILIRUBIN 0.3 mg/dL (0.0-1.0); TOTAL PROTEIN, SERUM 5.9 g/dL (6.4-8.3)
[2024-01-16] MEDS ORDERED: ESCITALOPRAM OXALATE 10 MG TABLET PO SCH (10:30)
[2024-01-16] MEDS: CITALOPRAM HYDROBROMIDE 20 MG TABLET PO ONE (11:28)
[2024-01-17] VITALS (36 sets, daily range): BP systolic 115–155; PULSE 102–124; RESP 13–36; TEMP 98.4–99; O2SAT 96–100
[2024-01-17 04:57] LABS: BASOPHILS # (AUTO) 0.1 K/uL (0.0-0.2); BASOPHILS % (AUTO) 0.6 % (0.0-2.0); EOSINOPHILS # (AUTO) 0.1 K/uL (0.0-0.4); HEMATOCRIT 24.3 % (36-48); HEMOGLOBIN 7.9 g/dL (12.0-16.0); LYMPHOCYTES # (AUTO) 1.2 K/uL (1.0-5.5); LYMPHOCYTES % (AUTO) 13.8 % (20.5-51.5); MEAN CORPUSCULAR HEMOGLOBIN 25 pg (27-31); MEAN CORPUSCULAR HGB CONC 32 % (32-36); MEAN CORPUSCULAR VOLUME 76 fL (79.0-98.0); MONOCYTES # (AUTO) 0.7 K/uL (0.0-1.0); MONOCYTES % (AUTO) 7.5 % (1.7-9.3); NEUTROPHILS # (AUTO) 6.9 K/uL (1.8-7.7); NEUTROPHILS % (AUTO) 77.1 % (40.0-70.0); PLATELET COUNT (AUTO) 397 K/uL (130-430); RED BLOOD CELL COUNT(AUTO) 3.18 MIL/uL (4.2-6.2)
[2024-01-17 05:09] LABS: CALCIUM 7.9 mg/dL (8.4-11.0); CREATININE 0.28 mg/dL (0.55-1.30); POTASSIUM 3.7 mmol/L (3.5-5.1); TOTAL BILIRUBIN 0.3 mg/dL (0.0-1.0)
[2024-01-17] MEDS: CITALOPRAM HYDROBROMIDE 20 MG TABLET PO SCH (08:58)
[2024-01-17] MEDS: PIPERACILLIN/TAZO 3.375 GM in D5W 50 ML IV ONE (16:10)
[2024-01-17] MEDS: IPRATROPIUM BROM 0.5 MG/2.5 ML VIAL.NEB (ATROVENT) INH ONE (18:05)
[2024-01-17] MEDS: IPRATROPIUM/ALBUTEROL SULFATE 3 ML AMPUL.NEB (DUONEB) INH ONE (18:12)
[2024-01-17] MEDS: PIPERACILLIN/TAZO 3.375 GM in D5W 50 ML IV SCH (21:19)
[2024-01-18] VITALS (34 sets, daily range): BP systolic 115–154; PULSE 102–119; RESP 15–24; TEMP 97.5–98.2; O2SAT 99–100
[2024-01-18] MEDS ORDERED: HEPARIN IV FLUSH 300 UNITS/3ML SYR INJ PRN (02:15)
[2024-01-18 06:07] LABS: BASOPHILS # (AUTO) 0.1 K/uL (0.0-0.2); BASOPHILS % (AUTO) 0.5 % (0.0-2.0); EOSINOPHILS # (AUTO) 0.1 K/uL (0.0-0.4); EOSINOPHILS % (AUTO) 0.9 % (0.0-4.0); HEMATOCRIT 24.4 % (36-48); HEMOGLOBIN 7.8 g/dL (12.0-16.0); LYMPHOCYTES # (AUTO) 1.2 K/uL (1.0-5.5); LYMPHOCYTES % (AUTO) 11.7 % (20.5-51.5); MEAN CORPUSCULAR HEMOGLOBIN 24 pg (27-31); MEAN CORPUSCULAR HGB CONC 32 % (32-36); MEAN CORPUSCULAR VOLUME 77 fL (79.0-98.0); MONOCYTES # (AUTO) 0.7 K/uL (0.0-1.0); MONOCYTES % (AUTO) 6.5 % (1.7-9.3); NEUTROPHILS # (AUTO) 8.1 K/uL (1.8-7.7); NEUTROPHILS % (AUTO) 80.4 % (40.0-70.0); PLATELET COUNT (AUTO) 468 K/uL (130-430); RED BLOOD CELL COUNT(AUTO) 3.19 MIL/uL (4.2-6.2); RED CELL DISTRIBUTION WIDTH 21.1 % (9.0-15.0); WHITE BLOOD COUNT (AUTO) 10.1 K/uL (4.8-10.8)
[2024-01-18 06:54] LABS: ALBUMIN 1.1 g/dL (3.4-4.8); CALCIUM 8.1 mg/dL (8.4-11.0); CREATININE 0.36 mg/dL (0.55-1.30); POTASSIUM 3.8 mmol/L (3.5-5.1); TOTAL BILIRUBIN 0.6 mg/dL (0.0-1.0); TOTAL PROTEIN, SERUM 6.2 g/dL (6.4-8.3)
[2024-01-18] MEDS ORDERED: ETOMIDATE 20 MG/ 10 ML VIAL (AMIDATE) ONE (08:35)
[2024-01-19] VITALS (36 sets, daily range): BP systolic 116–170; PULSE 93–118; RESP 13–31; TEMP 97.2–99.5; O2SAT 97–100
[2024-01-19 05:28] LABS: BASOPHILS % (AUTO) 0.4 % (0.0-2.0); EOSINOPHILS # (AUTO) 0.1 K/uL (0.0-0.4); EOSINOPHILS % (AUTO) 1.3 % (0.0-4.0); HEMATOCRIT 22.4 % (36-48); HEMOGLOBIN 7.2 g/dL (12.0-16.0); LYMPHOCYTES # (AUTO) 1.1 K/uL (1.0-5.5); LYMPHOCYTES % (AUTO) 14.3 % (20.5-51.5); MEAN CORPUSCULAR HEMOGLOBIN 25 pg (27-31); MEAN CORPUSCULAR HGB CONC 32 % (32-36); MEAN CORPUSCULAR VOLUME 77 fL (79.0-98.0); MONOCYTES # (AUTO) 0.5 K/uL (0.0-1.0); MONOCYTES % (AUTO) 6.5 % (1.7-9.3); NEUTROPHILS % (AUTO) 77.5 % (40.0-70.0); PLATELET COUNT (AUTO) 399 K/uL (130-430); RED BLOOD CELL COUNT(AUTO) 2.91 MIL/uL (4.2-6.2); WHITE BLOOD COUNT (AUTO) 7.7 K/uL (4.8-10.8)
[2024-01-19 05:51] LABS: CALCIUM 7.7 mg/dL (8.4-11.0); CREATININE 0.36 mg/dL (0.55-1.30); POTASSIUM 3.9 mmol/L (3.5-5.1); TOTAL BILIRUBIN 0.3 mg/dL (0.0-1.0); TOTAL PROTEIN, SERUM 5.9 g/dL (6.4-8.3)
[2024-01-19 13:08] LABS: BASOPHILS # (AUTO) 0.1 K/uL (0.0-0.2); EOSINOPHILS # (AUTO) 0.2 K/uL (0.0-0.4); EOSINOPHILS % (AUTO) 2.2 % (0.0-4.0); HEMATOCRIT 22.4 % (36-48); HEMOGLOBIN 7.2 g/dL (12.0-16.0); LYMPHOCYTES # (AUTO) 1.2 K/uL (1.0-5.5); LYMPHOCYTES % (AUTO) 15.5 % (20.5-51.5); MEAN CORPUSCULAR HEMOGLOBIN 25 pg (27-31); MEAN CORPUSCULAR HGB CONC 32 % (32-36); MEAN CORPUSCULAR VOLUME 76 fL (79.0-98.0); MONOCYTES # (AUTO) 0.5 K/uL (0.0-1.0); MONOCYTES % (AUTO) 6.6 % (1.7-9.3); NEUTROPHILS # (AUTO) 5.6 K/uL (1.8-7.7); NEUTROPHILS % (AUTO) 74.7 % (40.0-70.0); PLATELET COUNT (AUTO) 410 K/uL (130-430); RED BLOOD CELL COUNT(AUTO) 2.93 MIL/uL (4.2-6.2); RED CELL DISTRIBUTION WIDTH 21.2 % (9.0-15.0); WHITE BLOOD COUNT (AUTO) 7.5 K/uL (4.8-10.8)
[2024-01-19] MEDS: fentaNYL CITRATE/PF 100 MCG/2 ML AMP ONE (19:33)
[2024-01-19] MEDS ORDERED: ceFAZolin SODIUM 2 GM VIAL ONE (19:41)
[2024-01-19] MEDS ORDERED: HYDROcodone/ACETAMIN 5-325 MG TAB (NORCO/ VICODIN) PO PRN (20:30)
[2024-01-19] MEDS ORDERED: MORPHINE 4 MG INJ. 4 MG/ML VIAL IVP PRN (20:30)
[2024-01-20] VITALS (36 sets, daily range): BP systolic 129–173; PULSE 80–113; RESP 12–27; TEMP 97.1–98.5; O2SAT 98–100
[2024-01-20 04:43] LABS: BASOPHILS % (AUTO) 0.5 % (0.0-2.0); EOSINOPHILS # (AUTO) 0.1 K/uL (0.0-0.4); EOSINOPHILS % (AUTO) 1.1 % (0.0-4.0); HEMATOCRIT 22.4 % (36-48); HEMOGLOBIN 7.2 g/dL (12.0-16.0); LYMPHOCYTES # (AUTO) 0.9 K/uL (1.0-5.5); LYMPHOCYTES % (AUTO) 12.5 % (20.5-51.5); MEAN CORPUSCULAR HEMOGLOBIN 24 pg (27-31); MEAN CORPUSCULAR HGB CONC 32 % (32-36); MEAN CORPUSCULAR VOLUME 76 fL (79.0-98.0); MONOCYTES # (AUTO) 0.5 K/uL (0.0-1.0); MONOCYTES % (AUTO) 6.6 % (1.7-9.3); NEUTROPHILS # (AUTO) 5.5 K/uL (1.8-7.7); NEUTROPHILS % (AUTO) 79.3 % (40.0-70.0); PLATELET COUNT (AUTO) 387 K/uL (130-430); RED BLOOD CELL COUNT(AUTO) 2.93 MIL/uL (4.2-6.2); RED CELL DISTRIBUTION WIDTH 21.2 % (9.0-15.0); WHITE BLOOD COUNT (AUTO) 6.9 K/uL (4.8-10.8)
[2024-01-20 05:21] LABS: CALCIUM 7.7 mg/dL (8.4-11.0); CREATININE 0.38 mg/dL (0.55-1.30); POTASSIUM 3.4 mmol/L (3.5-5.1)
[2024-01-20] MEDS: FUROSEMIDE 20 MG/2 ML VIAL IVP SCH ×2 (09:13→21:49)
[2024-01-20] MEDS: METOPROLOL TARTRATE 25 MG TABLET PO ONE (12:12)
[2024-01-20] MEDS: METOPROLOL TARTRATE 25 MG TABLET PO SCH (21:49)
[2024-01-21] VITALS (35 sets, daily range): BP systolic 129–151; PULSE 10–105; RESP 12–23; TEMP 97.7–98; O2SAT 99–100
[2024-01-21 04:41] LABS: BASOPHILS % (AUTO) 0.5 % (0.0-2.0); EOSINOPHILS # (AUTO) 0.1 K/uL (0.0-0.4); EOSINOPHILS % (AUTO) 1.4 % (0.0-4.0); HEMATOCRIT 23.1 % (36-48); HEMOGLOBIN 7.4 g/dL (12.0-16.0); LYMPHOCYTES # (AUTO) 1.1 K/uL (1.0-5.5); LYMPHOCYTES % (AUTO) 12.8 % (20.5-51.5); MEAN CORPUSCULAR HEMOGLOBIN 24 pg (27-31); MEAN CORPUSCULAR HGB CONC 32 % (32-36); MEAN CORPUSCULAR VOLUME 76 fL (79.0-98.0); MONOCYTES # (AUTO) 0.6 K/uL (0.0-1.0); MONOCYTES % (AUTO) 7.1 % (1.7-9.3); NEUTROPHILS # (AUTO) 6.9 K/uL (1.8-7.7); NEUTROPHILS % (AUTO) 78.2 % (40.0-70.0); PLATELET COUNT (AUTO) 476 K/uL (130-430); RED BLOOD CELL COUNT(AUTO) 3.06 MIL/uL (4.2-6.2); RED CELL DISTRIBUTION WIDTH 21.2 % (9.0-15.0); WHITE BLOOD COUNT (AUTO) 8.8 K/uL (4.8-10.8)
[2024-01-21 04:57] LABS: CALCIUM 7.7 mg/dL (8.4-11.0); CREATININE 0.44 mg/dL (0.55-1.30); TOTAL BILIRUBIN 0.2 mg/dL (0.0-1.0); TOTAL PROTEIN, SERUM 6.1 g/dL (6.4-8.3)
[2024-01-21 05:14] LABS: POTASSIUM 2.9 mmol/L (3.5-5.1)
[2024-01-21] MEDS: KCL 40 mEq in 100 mL (PREMIX) 100 ML IV ONE ×2 (11:52→12:05)
[2024-01-21] MEDS ORDERED: AMOX-423 PO (12:10)
[2024-01-21] MEDS ORDERED: FURO-150 PO (12:10)
[2024-01-21] MEDS: FUROSEMIDE 20 MG/2 ML VIAL IVP ONE (16:48)
[2024-01-22] VITALS (36 sets, daily range): BP systolic 118–160; PULSE 83–112; RESP 13–22; TEMP 97.7–98.9; O2SAT 97–100
[2024-01-22 07:01] LABS: BASOPHILS % (AUTO) 0.6 % (0.0-2.0); EOSINOPHILS # (AUTO) 0.1 K/uL (0.0-0.4); EOSINOPHILS % (AUTO) 1.6 % (0.0-4.0); HEMATOCRIT 23.3 % (36-48); HEMOGLOBIN 7.3 g/dL (12.0-16.0); LYMPHOCYTES # (AUTO) 1.3 K/uL (1.0-5.5); MEAN CORPUSCULAR HEMOGLOBIN 24 pg (27-31); MEAN CORPUSCULAR HGB CONC 31 % (32-36); MEAN CORPUSCULAR VOLUME 77 fL (79.0-98.0); MONOCYTES # (AUTO) 0.4 K/uL (0.0-1.0); MONOCYTES % (AUTO) 5.1 % (1.7-9.3); NEUTROPHILS # (AUTO) 5.5 K/uL (1.8-7.7); NEUTROPHILS % (AUTO) 74.7 % (40.0-70.0); PLATELET COUNT (AUTO) 401 K/uL (130-430); RED BLOOD CELL COUNT(AUTO) 3.03 MIL/uL (4.2-6.2); RED CELL DISTRIBUTION WIDTH 21.3 % (9.0-15.0); WHITE BLOOD COUNT (AUTO) 7.3 K/uL (4.8-10.8)
[2024-01-22 07:14] LABS: CALCIUM 7.6 mg/dL (8.4-11.0); CREATININE 0.35 mg/dL (0.55-1.30); POTASSIUM 3.1 mmol/L (3.5-5.1)
[2024-01-23] VITALS (36 sets, daily range): BP systolic 123–167; PULSE 84–109; RESP 12–28; TEMP 98.5–99.1; O2SAT 99–100
[2024-01-23 07:06] LABS: BASOPHILS % (AUTO) 0.5 % (0.0-2.0); EOSINOPHILS # (AUTO) 0.1 K/uL (0.0-0.4); EOSINOPHILS % (AUTO) 1.5 % (0.0-4.0); HEMATOCRIT 23.6 % (36-48); HEMOGLOBIN 7.5 g/dL (12.0-16.0); LYMPHOCYTES # (AUTO) 1.7 K/uL (1.0-5.5); LYMPHOCYTES % (AUTO) 19.3 % (20.5-51.5); MEAN CORPUSCULAR HEMOGLOBIN 24 pg (27-31); MEAN CORPUSCULAR HGB CONC 32 % (32-36); MEAN CORPUSCULAR VOLUME 76 fL (79.0-98.0); MONOCYTES # (AUTO) 0.5 K/uL (0.0-1.0); MONOCYTES % (AUTO) 5.7 % (1.7-9.3); NEUTROPHILS # (AUTO) 6.3 K/uL (1.8-7.7); PLATELET COUNT (AUTO) 430 K/uL (130-430); RED CELL DISTRIBUTION WIDTH 21.7 % (9.0-15.0); WHITE BLOOD COUNT (AUTO) 8.7 K/uL (4.8-10.8)
[2024-01-23 07:07] LABS: CALCIUM 7.9 mg/dL (8.4-11.0); CREATININE 0.37 mg/dL (0.55-1.30); POTASSIUM 3.1 mmol/L (3.5-5.1)
[2024-01-23 07:47] LABS: ERYTHROCYTE SEDIMENTATION RATE > 130 MM/HR (0-20)
[2024-01-23] MEDS: POTASSIUM CHLORIDE 20 MEQ/PKT PACKET GT ONE (13:28)
[2024-01-24] VITALS (36 sets, daily range): BP systolic 123–173; PULSE 84–116; RESP 13–23; TEMP 97.6–98.6; O2SAT 98–100
[2024-01-24 05:06] LABS: ERYTHROCYTE SEDIMENTATION RATE 128 MM/HR (0-20)
[2024-01-24 05:29] LABS: BASOPHILS % (AUTO) 0.4 % (0.0-2.0); EOSINOPHILS # (AUTO) 0.2 K/uL (0.0-0.4); LYMPHOCYTES # (AUTO) 1.5 K/uL (1.0-5.5); LYMPHOCYTES % (AUTO) 13.3 % (20.5-51.5); MEAN CORPUSCULAR HEMOGLOBIN 24 pg (27-31); MEAN CORPUSCULAR HGB CONC 32 % (32-36); MEAN CORPUSCULAR VOLUME 76 fL (79.0-98.0); MONOCYTES # (AUTO) 0.6 K/uL (0.0-1.0); MONOCYTES % (AUTO) 5.3 % (1.7-9.3); NEUTROPHILS # (AUTO) 8.8 K/uL (1.8-7.7); PLATELET COUNT (AUTO) 411 K/uL (130-430); RED BLOOD CELL COUNT(AUTO) 2.86 MIL/uL (4.2-6.2); RED CELL DISTRIBUTION WIDTH 21.4 % (9.0-15.0); WHITE BLOOD COUNT (AUTO) 11.1 K/uL (4.8-10.8)
[2024-01-24 05:41] LABS: ALBUMIN 1.1 g/dL (3.4-4.8); CALCIUM 7.7 mg/dL (8.4-11.0); CREATININE 0.37 mg/dL (0.55-1.30); POTASSIUM 3.2 mmol/L (3.5-5.1); TOTAL BILIRUBIN 0.2 mg/dL (0.0-1.0)
[2024-01-24 06:25] LABS: HEMOGLOBIN 6.9 g/dL (12.0-16.0)
[2024-01-24 06:26] LABS: HEMATOCRIT 21.7 % (36-48)
[2024-01-24] MEDS: COMMUNICATION ORDER XX ONE (12:15)
[2024-01-24 20:29] LABS: HEMATOCRIT 27.8 % (36-48)
[2024-01-25] VITALS (31 sets, daily range): BP systolic 107–151; PULSE 76–109; RESP 14–25; TEMP 97.7–98.5; O2SAT 98–100
[2024-01-25 06:17] LABS: BASOPHILS % (AUTO) 0.5 % (0.0-2.0); EOSINOPHILS # (AUTO) 0.2 K/uL (0.0-0.4); EOSINOPHILS % (AUTO) 2.2 % (0.0-4.0); HEMATOCRIT 28.3 % (36-48); LYMPHOCYTES % (AUTO) 9.3 % (20.5-51.5); MEAN CORPUSCULAR HEMOGLOBIN 25 pg (27-31); MEAN CORPUSCULAR HGB CONC 32 % (32-36); MEAN CORPUSCULAR VOLUME 78 fL (79.0-98.0); MONOCYTES # (AUTO) 0.7 K/uL (0.0-1.0); MONOCYTES % (AUTO) 6.5 % (1.7-9.3); NEUTROPHILS # (AUTO) 8.7 K/uL (1.8-7.7); NEUTROPHILS % (AUTO) 81.5 % (40.0-70.0); PLATELET COUNT (AUTO) 310 K/uL (130-430); RED BLOOD CELL COUNT(AUTO) 3.61 MIL/uL (4.2-6.2); RED CELL DISTRIBUTION WIDTH 19.5 % (9.0-15.0); WHITE BLOOD COUNT (AUTO) 10.6 K/uL (4.8-10.8)
[2024-01-25 06:26] LABS: ALBUMIN 1.2 g/dL (3.4-4.8); CREATININE 0.38 mg/dL (0.55-1.30); TOTAL BILIRUBIN 0.2 mg/dL (0.0-1.0); TOTAL PROTEIN, SERUM 6.2 g/dL (6.4-8.3)
[2024-01-25 07:15] LABS: POTASSIUM 2.9 mmol/L (3.5-5.1)
[2024-01-25] MEDS: POTASSIUM CHLORIDE 40 MEQ in NS 250 ML IV ONE (11:38)
[2024-01-25] MEDS: INSULIN GLARGINE 100 UNITS/ML, 10 ML VIAL SUBCUT SCH (22:28)
[2024-01-26] VITALS (20 sets, daily range): BP systolic 107–134; PULSE 71–115; RESP 16–22; TEMP 97.7–98.4; O2SAT 97–100
[2024-01-26] MEDS: FUROSEMIDE 20 MG/2 ML VIAL IVP SCH (09:13)
[2024-01-26 09:48] LABS: BASOPHILS % (AUTO) 0.3 % (0.0-2.0); EOSINOPHILS # (AUTO) 0.2 K/uL (0.0-0.4); EOSINOPHILS % (AUTO) 1.8 % (0.0-4.0); HEMATOCRIT 28.4 % (36-48); HEMOGLOBIN 8.9 g/dL (12.0-16.0); LYMPHOCYTES # (AUTO) 1.1 K/uL (1.0-5.5); LYMPHOCYTES % (AUTO) 10.7 % (20.5-51.5); MEAN CORPUSCULAR HEMOGLOBIN 25 pg (27-31); MEAN CORPUSCULAR HGB CONC 31 % (32-36); MEAN CORPUSCULAR VOLUME 78 fL (79.0-98.0); MONOCYTES # (AUTO) 0.7 K/uL (0.0-1.0); MONOCYTES % (AUTO) 6.3 % (1.7-9.3); NEUTROPHILS # (AUTO) 8.4 K/uL (1.8-7.7); NEUTROPHILS % (AUTO) 80.9 % (40.0-70.0); PLATELET COUNT (AUTO) 326 K/uL (130-430); RED BLOOD CELL COUNT(AUTO) 3.63 MIL/uL (4.2-6.2); RED CELL DISTRIBUTION WIDTH 20.5 % (9.0-15.0); WHITE BLOOD COUNT (AUTO) 10.4 K/uL (4.8-10.8)
[2024-01-26 10:05] LABS: ALBUMIN 1.2 g/dL (3.4-4.8); CALCIUM 8.4 mg/dL (8.4-11.0); CREATININE 0.4 mg/dL (0.55-1.30); POTASSIUM 3.4 mmol/L (3.5-5.1); TOTAL BILIRUBIN 0.2 mg/dL (0.0-1.0); TOTAL PROTEIN, SERUM 6.3 g/dL (6.4-8.3)
[2024-01-27] VITALS (18 sets, daily range): BP systolic 95–145; PULSE 60–116; RESP 14–21; TEMP 98–99; O2SAT 100
[2024-01-27 08:23] LABS: BASOPHILS % (AUTO) 0.5 % (0.0-2.0); EOSINOPHILS # (AUTO) 0.2 K/uL (0.0-0.4); EOSINOPHILS % (AUTO) 2.3 % (0.0-4.0); HEMATOCRIT 27.5 % (36-48); HEMOGLOBIN 8.7 g/dL (12.0-16.0); LYMPHOCYTES # (AUTO) 1.2 K/uL (1.0-5.5); LYMPHOCYTES % (AUTO) 12.6 % (20.5-51.5); MEAN CORPUSCULAR HEMOGLOBIN 25 pg (27-31); MEAN CORPUSCULAR HGB CONC 32 % (32-36); MEAN CORPUSCULAR VOLUME 79 fL (79.0-98.0); MONOCYTES # (AUTO) 0.6 K/uL (0.0-1.0); MONOCYTES % (AUTO) 5.9 % (1.7-9.3); NEUTROPHILS # (AUTO) 7.6 K/uL (1.8-7.7); NEUTROPHILS % (AUTO) 78.7 % (40.0-70.0); PLATELET COUNT (AUTO) 297 K/uL (130-430); RED BLOOD CELL COUNT(AUTO) 3.48 MIL/uL (4.2-6.2); RED CELL DISTRIBUTION WIDTH 20.2 % (9.0-15.0); WHITE BLOOD COUNT (AUTO) 9.6 K/uL (4.8-10.8)
[2024-01-27 08:39] LABS: ALBUMIN 1.2 g/dL (3.4-4.8); CALCIUM 8.2 mg/dL (8.4-11.0); CREATININE 0.29 mg/dL (0.55-1.30); POTASSIUM 3.6 mmol/L (3.5-5.1); TOTAL BILIRUBIN 0.2 mg/dL (0.0-1.0); TOTAL PROTEIN, SERUM 6.2 g/dL (6.4-8.3)
[2024-01-28] VITALS (18 sets, daily range): BP systolic 100–124; PULSE 81–111; RESP 12–17; TEMP 95.5–98.5; O2SAT 98–100
[2024-01-28 08:21] LABS: BASOPHILS % (AUTO) 0.5 % (0.0-2.0); EOSINOPHILS # (AUTO) 0.2 K/uL (0.0-0.4); EOSINOPHILS % (AUTO) 2.2 % (0.0-4.0); HEMOGLOBIN 8.9 g/dL (12.0-16.0); LYMPHOCYTES # (AUTO) 1.1 K/uL (1.0-5.5); LYMPHOCYTES % (AUTO) 11.3 % (20.5-51.5); MEAN CORPUSCULAR HEMOGLOBIN 25 pg (27-31); MEAN CORPUSCULAR HGB CONC 32 % (32-36); MEAN CORPUSCULAR VOLUME 79 fL (79.0-98.0); MONOCYTES # (AUTO) 0.6 K/uL (0.0-1.0); MONOCYTES % (AUTO) 6.2 % (1.7-9.3); NEUTROPHILS # (AUTO) 7.7 K/uL (1.8-7.7); NEUTROPHILS % (AUTO) 79.8 % (40.0-70.0); PLATELET COUNT (AUTO) 339 K/uL (130-430); RED BLOOD CELL COUNT(AUTO) 3.54 MIL/uL (4.2-6.2); RED CELL DISTRIBUTION WIDTH 20.5 % (9.0-15.0); WHITE BLOOD COUNT (AUTO) 9.6 K/uL (4.8-10.8)
[2024-01-28 08:45] LABS: ALBUMIN 1.3 g/dL (3.4-4.8); CALCIUM 8.7 mg/dL (8.4-11.0); CREATININE 0.39 mg/dL (0.55-1.30); POTASSIUM 3.7 mmol/L (3.5-5.1); TOTAL BILIRUBIN 0.2 mg/dL (0.0-1.0); TOTAL PROTEIN, SERUM 6.4 g/dL (6.4-8.3)
[2024-01-29] VITALS (19 sets, daily range): BP systolic 90–121; PULSE 79–101; RESP 16–20; TEMP 97.4–98.6; O2SAT 99–100
[2024-01-29 07:33] LABS: ALBUMIN 1.2 g/dL (3.4-4.8); CALCIUM 8.6 mg/dL (8.4-11.0); CREATININE 0.36 mg/dL (0.55-1.30); POTASSIUM 3.6 mmol/L (3.5-5.1); TOTAL BILIRUBIN 0.3 mg/dL (0.0-1.0); TOTAL PROTEIN, SERUM 6.4 g/dL (6.4-8.3)
[2024-01-29 08:40] LABS: BASOPHILS % (AUTO) 0.5 % (0.0-2.0); EOSINOPHILS # (AUTO) 0.2 K/uL (0.0-0.4); EOSINOPHILS % (AUTO) 2.8 % (0.0-4.0); HEMOGLOBIN 9.5 g/dL (12.0-16.0); LYMPHOCYTES # (AUTO) 1.2 K/uL (1.0-5.5); LYMPHOCYTES % (AUTO) 13.7 % (20.5-51.5); MEAN CORPUSCULAR HEMOGLOBIN 26 pg (27-31); MEAN CORPUSCULAR HGB CONC 33 % (32-36); MEAN CORPUSCULAR VOLUME 79 fL (79.0-98.0); MONOCYTES # (AUTO) 0.5 K/uL (0.0-1.0); MONOCYTES % (AUTO) 6.1 % (1.7-9.3); NEUTROPHILS # (AUTO) 6.5 K/uL (1.8-7.7); NEUTROPHILS % (AUTO) 76.9 % (40.0-70.0); PLATELET COUNT (AUTO) 333 K/uL (130-430); RED CELL DISTRIBUTION WIDTH 20.2 % (9.0-15.0); WHITE BLOOD COUNT (AUTO) 8.4 K/uL (4.8-10.8)
[2024-01-29] MEDS: FUROSEMIDE 20 MG TABLET GT SCH (21:23)
[2024-01-30] VITALS (17 sets, daily range): BP systolic 92–125; PULSE 79–202; RESP 17–18; TEMP 97.1–97.8; O2SAT 97–100
[2024-01-30 08:53] LABS: BASOPHILS % (AUTO) 0.4 % (0.0-2.0); EOSINOPHILS # (AUTO) 0.2 K/uL (0.0-0.4); HEMATOCRIT 27.4 % (36-48); LYMPHOCYTES # (AUTO) 0.9 K/uL (1.0-5.5); LYMPHOCYTES % (AUTO) 10.8 % (20.5-51.5); MEAN CORPUSCULAR HEMOGLOBIN 26 pg (27-31); MEAN CORPUSCULAR HGB CONC 33 % (32-36); MEAN CORPUSCULAR VOLUME 78 fL (79.0-98.0); MONOCYTES # (AUTO) 0.5 K/uL (0.0-1.0); MONOCYTES % (AUTO) 6.1 % (1.7-9.3); NEUTROPHILS # (AUTO) 6.8 K/uL (1.8-7.7); NEUTROPHILS % (AUTO) 80.7 % (40.0-70.0); PLATELET COUNT (AUTO) 318 K/uL (130-430); RED CELL DISTRIBUTION WIDTH 20.5 % (9.0-15.0); WHITE BLOOD COUNT (AUTO) 8.5 K/uL (4.8-10.8)
[2024-01-30 09:06] LABS: ALBUMIN 1.2 g/dL (3.4-4.8); CALCIUM 8.6 mg/dL (8.4-11.0); CREATININE 0.38 mg/dL (0.55-1.30); POTASSIUM 3.7 mmol/L (3.5-5.1); TOTAL BILIRUBIN 0.4 mg/dL (0.0-1.0); TOTAL PROTEIN, SERUM 6.3 g/dL (6.4-8.3)
[2024-01-30] MEDS: ADENOSINE 6MG/2ML VIAL ONE (23:51)
[2024-01-31] VITALS (18 sets, daily range): BP systolic 110–130; PULSE 103–125; RESP 12–24; TEMP 97.5–98.8; O2SAT 99–100
[2024-01-31] MEDS: ADENOSINE 6MG/2ML VIAL ONE (00:01)
[2024-01-31] MEDS: NS 500 ML IV ONE (00:23)
[2024-01-31] MEDS: ADENOSINE 6MG/2ML VIAL IVP ONE ×2 (00:24→00:25)
[2024-01-31] MEDS ORDERED: LORazepam 2 MG/ML VIAL IVP PRN (00:45)
[2024-01-31 07:49] LABS: BASOPHILS % (AUTO) 0.2 % (0.0-2.0); HEMATOCRIT 28.9 % (36-48); LYMPHOCYTES # (AUTO) 0.6 K/uL (1.0-5.5); LYMPHOCYTES % (AUTO) 3.7 % (20.5-51.5); MEAN CORPUSCULAR HEMOGLOBIN 25 pg (27-31); MEAN CORPUSCULAR HGB CONC 31 % (32-36); MEAN CORPUSCULAR VOLUME 79 fL (79.0-98.0); MONOCYTES # (AUTO) 0.7 K/uL (0.0-1.0); NEUTROPHILS % (AUTO) 92.1 % (40.0-70.0); PLATELET COUNT (AUTO) 344 K/uL (130-430); RED BLOOD CELL COUNT(AUTO) 3.67 MIL/uL (4.2-6.2); RED CELL DISTRIBUTION WIDTH 20.2 % (9.0-15.0); WHITE BLOOD COUNT (AUTO) 17.4 K/uL (4.8-10.8)
[2024-01-31 08:19] LABS: ALBUMIN 1.2 g/dL (3.4-4.8); CALCIUM 8.3 mg/dL (8.4-11.0); CREATININE 0.44 mg/dL (0.55-1.30); POTASSIUM 3.1 mmol/L (3.5-5.1); TOTAL PROTEIN, SERUM 6.4 g/dL (6.4-8.3)
[2024-01-31] MEDS: PIPERACILLIN/TAZO 3.375 GM in D5W 50 ML IV SCH (13:27)
[2024-01-31] MEDS ORDERED: VANCOMYCIN HCL ORAL SOLUTION 25 MG/ML, 150 ML GT ONE (13:45)
[2024-01-31] MEDS: POTASSIUM CHLORIDE 40 MEQ in NS 250 ML IV ONE (14:09)
[2024-01-31] MEDS: VANCOMYCIN HCL ORAL SOLUTION 25 MG/ML, 150 ML GT SCH (17:45)
[2024-01-31] MEDS: DILTIAZEM HCL 60 MG TABLET PO ONE (17:46)
[2024-01-31] MEDS: DILTIAZEM HCL 60 MG TABLET PO SCH (22:19)
[2024-02-01] VITALS (19 sets, daily range): BP systolic 102–125; PULSE 93–109; RESP 14–20; TEMP 97.5–98.4; O2SAT 99–100
[2024-02-01 10:47] LABS: BASOPHILS % (AUTO) 0.1 % (0.0-2.0); EOSINOPHILS # (AUTO) 0.1 K/uL (0.0-0.4); EOSINOPHILS % (AUTO) 1.2 % (0.0-4.0); HEMATOCRIT 27.9 % (36-48); HEMOGLOBIN 8.7 g/dL (12.0-16.0); LYMPHOCYTES # (AUTO) 0.5 K/uL (1.0-5.5); LYMPHOCYTES % (AUTO) 4.4 % (20.5-51.5); MEAN CORPUSCULAR HEMOGLOBIN 25 pg (27-31); MEAN CORPUSCULAR HGB CONC 31 % (32-36); MEAN CORPUSCULAR VOLUME 79 fL (79.0-98.0); MONOCYTES # (AUTO) 0.5 K/uL (0.0-1.0); MONOCYTES % (AUTO) 4.4 % (1.7-9.3); NEUTROPHILS # (AUTO) 10.4 K/uL (1.8-7.7); NEUTROPHILS % (AUTO) 89.9 % (40.0-70.0); PLATELET COUNT (AUTO) 280 K/uL (130-430); RED BLOOD CELL COUNT(AUTO) 3.55 MIL/uL (4.2-6.2); RED CELL DISTRIBUTION WIDTH 20.4 % (9.0-15.0); WHITE BLOOD COUNT (AUTO) 11.6 K/uL (4.8-10.8)
[2024-02-01 11:14] LABS: ALBUMIN 1.2 g/dL (3.4-4.8); BILIRUBIN,DIRECT 1.2 mg/dL (0.0-0.3); TOTAL BILIRUBIN 1.4 mg/dL (0.0-1.0); TOTAL PROTEIN, SERUM 6.2 g/dL (6.4-8.3)
[2024-02-02] VITALS (17 sets, daily range): BP systolic 106–125; PULSE 93–118; RESP 16–18; TEMP 97.3–98.4; O2SAT 99–100
[2024-02-02 07:53] LABS: BASOPHILS % (AUTO) 0.2 % (0.0-2.0); EOSINOPHILS # (AUTO) 0.1 K/uL (0.0-0.4); EOSINOPHILS % (AUTO) 0.8 % (0.0-4.0); HEMATOCRIT 27.9 % (36-48); HEMOGLOBIN 8.9 g/dL (12.0-16.0); LYMPHOCYTES # (AUTO) 0.6 K/uL (1.0-5.5); LYMPHOCYTES % (AUTO) 5.7 % (20.5-51.5); MEAN CORPUSCULAR HEMOGLOBIN 25 pg (27-31); MEAN CORPUSCULAR HGB CONC 32 % (32-36); MEAN CORPUSCULAR VOLUME 79 fL (79.0-98.0); MONOCYTES # (AUTO) 0.6 K/uL (0.0-1.0); MONOCYTES % (AUTO) 5.2 % (1.7-9.3); NEUTROPHILS # (AUTO) 9.7 K/uL (1.8-7.7); NEUTROPHILS % (AUTO) 88.1 % (40.0-70.0); PLATELET COUNT (AUTO) 312 K/uL (130-430); RED BLOOD CELL COUNT(AUTO) 3.53 MIL/uL (4.2-6.2); RED CELL DISTRIBUTION WIDTH 20.2 % (9.0-15.0)
[2024-02-02 08:40] LABS: CALCIUM 8.4 mg/dL (8.4-11.0); CREATININE 0.48 mg/dL (0.55-1.30)
[2024-02-02 13:54] LABS: ALBUMIN 1.2 g/dL (3.4-4.8); BILIRUBIN,DIRECT 1.6 mg/dL (0.0-0.3); TOTAL BILIRUBIN 1.8 mg/dL (0.0-1.0); TOTAL PROTEIN, SERUM 6.3 g/dL (6.4-8.3)
[2024-02-03] VITALS (18 sets, daily range): BP systolic 98–121; PULSE 97–116; RESP 12–18; TEMP 97.6–98.7; O2SAT 98–100
[2024-02-03 09:42] LABS: EOSINOPHILS # (AUTO) 0.1 K/uL (0.0-0.4); EOSINOPHILS % (AUTO) 0.5 % (0.0-4.0); HEMATOCRIT 27.4 % (36-48); HEMOGLOBIN 8.5 g/dL (12.0-16.0); LYMPHOCYTES # (AUTO) 0.5 K/uL (1.0-5.5); LYMPHOCYTES % (AUTO) 4.6 % (20.5-51.5); MEAN CORPUSCULAR HEMOGLOBIN 24 pg (27-31); MEAN CORPUSCULAR HGB CONC 31 % (32-36); MEAN CORPUSCULAR VOLUME 78 fL (79.0-98.0); MONOCYTES # (AUTO) 0.7 K/uL (0.0-1.0); MONOCYTES % (AUTO) 5.7 % (1.7-9.3); NEUTROPHILS # (AUTO) 10.7 K/uL (1.8-7.7); NEUTROPHILS % (AUTO) 89.2 % (40.0-70.0); PLATELET COUNT (AUTO) 292 K/uL (130-430); RED BLOOD CELL COUNT(AUTO) 3.51 MIL/uL (4.2-6.2); RED CELL DISTRIBUTION WIDTH 20.4 % (9.0-15.0)
[2024-02-03 10:06] LABS: BILIRUBIN,DIRECT 2.5 mg/dL (0.0-0.3); TOTAL BILIRUBIN 2.7 mg/dL (0.0-1.0); TOTAL PROTEIN, SERUM 6.1 g/dL (6.4-8.3)
[2024-02-04] VITALS (14 sets, daily range): BP systolic 85–100; PULSE 104–117; RESP 12; TEMP 98–98.6; O2SAT 99–100
[2024-02-04 06:09] LABS: BASOPHILS % (AUTO) 0.1 % (0.0-2.0); EOSINOPHILS # (AUTO) 0.1 K/uL (0.0-0.4); EOSINOPHILS % (AUTO) 1.2 % (0.0-4.0); HEMATOCRIT 27.3 % (36-48); HEMOGLOBIN 8.6 g/dL (12.0-16.0); LYMPHOCYTES # (AUTO) 0.8 K/uL (1.0-5.5); LYMPHOCYTES % (AUTO) 7.1 % (20.5-51.5); MEAN CORPUSCULAR HEMOGLOBIN 25 pg (27-31); MEAN CORPUSCULAR HGB CONC 32 % (32-36); MEAN CORPUSCULAR VOLUME 78 fL (79.0-98.0); MONOCYTES # (AUTO) 0.8 K/uL (0.0-1.0); NEUTROPHILS # (AUTO) 9.7 K/uL (1.8-7.7); NEUTROPHILS % (AUTO) 84.6 % (40.0-70.0); PLATELET COUNT (AUTO) 330 K/uL (130-430); RED CELL DISTRIBUTION WIDTH 20.4 % (9.0-15.0); WHITE BLOOD COUNT (AUTO) 11.4 K/uL (4.8-10.8)
[2024-02-04 06:32] LABS: INR 1.2 (0.8-1.2); PROTHROMBIN TIME 12.6 SECS (9.5-12.5)
[2024-02-04 06:37] LABS: CALCIUM 8.3 mg/dL (8.4-11.0); CREATININE 0.46 mg/dL (0.55-1.30)
[2024-02-04 07:25] LABS: POTASSIUM 2.9 mmol/L (3.5-5.1)
[2024-02-04] MEDS: INDOMETHACIN 50 MG SUPP.RECT RC ONE (08:00)
[2024-02-04] MEDS: SPIRONOLACTONE 25 MG TABLET (ALDACTONE) PO ONE (09:16)
[2024-02-04] MEDS: POTASSIUM CHLORIDE 40 MEQ in NS 250 ML IV ONE (10:39)
[2024-02-04] MEDS: ALBUMIN HUMAN 25% 50 ML IV ONE (11:13)
[2024-02-04] MEDS: ENOXAPARIN SODIUM 40 MG/0.4 ML SYRINGE SUBCUT ONE (11:32)
[2024-02-04] MEDS: SOD FERRIC GLUC COMPLEX/SUC 125 MG in NS 100 ML IV SCH (14:11)
[2024-02-04] MEDS: DILTIAZEM HCL 60 MG TABLET PO SCH (14:16)
[2024-02-04 16:58] LABS: CALCIUM 8.3 mg/dL (8.4-11.0); CREATININE 0.44 mg/dL (0.55-1.30); POTASSIUM 4.2 mmol/L (3.5-5.1)
[2024-02-05] VITALS (18 sets, daily range): BP systolic 98–115; PULSE 68–117; RESP 12–22; TEMP 97.6–98.4; O2SAT 98–100
[2024-02-05] MEDS: ALBUMIN HUMAN 25% 50 ML IV SCH (09:57)
[2024-02-05] MEDS: VANCOMYCIN HCL ORAL SOLUTION 25 MG/ML, 150 ML GT SCH (17:12)
[2024-02-06] VITALS (18 sets, daily range): BP systolic 99–125; PULSE 68–107; RESP 8–20; TEMP 96.5–97.7; O2SAT 99–100
[2024-02-06 07:33] LABS: BASOPHILS % (AUTO) 0.2 % (0.0-2.0); EOSINOPHILS # (AUTO) 0.1 K/uL (0.0-0.4); EOSINOPHILS % (AUTO) 1.3 % (0.0-4.0); HEMATOCRIT 24.3 % (36-48); HEMOGLOBIN 7.8 g/dL (12.0-16.0); LYMPHOCYTES # (AUTO) 0.8 K/uL (1.0-5.5); LYMPHOCYTES % (AUTO) 7.3 % (20.5-51.5); MEAN CORPUSCULAR HEMOGLOBIN 25 pg (27-31); MEAN CORPUSCULAR HGB CONC 32 % (32-36); MEAN CORPUSCULAR VOLUME 78 fL (79.0-98.0); MONOCYTES # (AUTO) 0.5 K/uL (0.0-1.0); MONOCYTES % (AUTO) 4.9 % (1.7-9.3); NEUTROPHILS # (AUTO) 9.1 K/uL (1.8-7.7); NEUTROPHILS % (AUTO) 86.3 % (40.0-70.0); PLATELET COUNT (AUTO) 256 K/uL (130-430); RED BLOOD CELL COUNT(AUTO) 3.12 MIL/uL (4.2-6.2); RED CELL DISTRIBUTION WIDTH 20.3 % (9.0-15.0); WHITE BLOOD COUNT (AUTO) 10.5 K/uL (4.8-10.8)
[2024-02-06 08:09] LABS: ALBUMIN 1.8 g/dL (3.4-4.8); CALCIUM 8.4 mg/dL (8.4-11.0); CREATININE 0.51 mg/dL (0.55-1.30); TOTAL BILIRUBIN 4.4 mg/dL (0.0-1.0); TOTAL PROTEIN, SERUM 5.9 g/dL (6.4-8.3)
[2024-02-06] MEDS: D5/0.45 NS 1,000 ML IV SCH (09:52)
[2024-02-07] VITALS (17 sets, daily range): BP systolic 104–137; PULSE 70–113; RESP 12–18; TEMP 97.6–98.6; O2SAT 98–100
[2024-02-07 07:38] LABS: BASOPHILS % (AUTO) 0.2 % (0.0-2.0); EOSINOPHILS # (AUTO) 0.1 K/uL (0.0-0.4); EOSINOPHILS % (AUTO) 0.9 % (0.0-4.0); HEMATOCRIT 27.6 % (36-48); HEMOGLOBIN 8.6 g/dL (12.0-16.0); LYMPHOCYTES # (AUTO) 1.3 K/uL (1.0-5.5); LYMPHOCYTES % (AUTO) 9.5 % (20.5-51.5); MEAN CORPUSCULAR HEMOGLOBIN 24 pg (27-31); MEAN CORPUSCULAR HGB CONC 31 % (32-36); MEAN CORPUSCULAR VOLUME 78 fL (79.0-98.0); MONOCYTES # (AUTO) 0.4 K/uL (0.0-1.0); MONOCYTES % (AUTO) 3.2 % (1.7-9.3); NEUTROPHILS # (AUTO) 11.9 K/uL (1.8-7.7); NEUTROPHILS % (AUTO) 86.2 % (40.0-70.0); PLATELET COUNT (AUTO) 317 K/uL (130-430); RED BLOOD CELL COUNT(AUTO) 3.56 MIL/uL (4.2-6.2); RED CELL DISTRIBUTION WIDTH 20.3 % (9.0-15.0); WHITE BLOOD COUNT (AUTO) 13.7 K/uL (4.8-10.8)
[2024-02-07 08:14] LABS: ALBUMIN 1.6 g/dL (3.4-4.8); CALCIUM 8.4 mg/dL (8.4-11.0); CREATININE 0.41 mg/dL (0.55-1.30); POTASSIUM 3.3 mmol/L (3.5-5.1); TOTAL BILIRUBIN 4.8 mg/dL (0.0-1.0); TOTAL PROTEIN, SERUM 5.9 g/dL (6.4-8.3)
[2024-02-07 08:15] LABS: INR 1.7 (0.8-1.2); PROTHROMBIN TIME 16.9 SECS (9.5-12.5)
[2024-02-07] MEDS ORDERED: SEVOFLURANE 15 MIN GAS INH ONE (11:45)
[2024-02-07] MEDS: INDOMETHACIN 50 MG SUPP.RECT RC ONE (12:29)
[2024-02-07] MEDS ORDERED: LR 1,000 ML IV SCH (13:00)
[2024-02-08] VITALS (21 sets, daily range): BP systolic 104–150; PULSE 20–123; RESP 12–21; TEMP 96.6–98.4; O2SAT 97–100
[2024-02-08 04:52] LABS: BASOPHILS % (AUTO) 0.1 % (0.0-2.0); EOSINOPHILS # (AUTO) 0.1 K/uL (0.0-0.4); EOSINOPHILS % (AUTO) 0.7 % (0.0-4.0); HEMATOCRIT 27.7 % (36-48); HEMOGLOBIN 8.7 g/dL (12.0-16.0); LYMPHOCYTES # (AUTO) 1.7 K/uL (1.0-5.5); LYMPHOCYTES % (AUTO) 10.3 % (20.5-51.5); MEAN CORPUSCULAR HEMOGLOBIN 24 pg (27-31); MEAN CORPUSCULAR HGB CONC 31 % (32-36); MEAN CORPUSCULAR VOLUME 78 fL (79.0-98.0); MONOCYTES # (AUTO) 0.4 K/uL (0.0-1.0); MONOCYTES % (AUTO) 2.7 % (1.7-9.3); NEUTROPHILS # (AUTO) 14.1 K/uL (1.8-7.7); NEUTROPHILS % (AUTO) 86.2 % (40.0-70.0); PLATELET COUNT (AUTO) 348 K/uL (130-430); RED BLOOD CELL COUNT(AUTO) 3.57 MIL/uL (4.2-6.2); RED CELL DISTRIBUTION WIDTH 20.5 % (9.0-15.0); WHITE BLOOD COUNT (AUTO) 16.3 K/uL (4.8-10.8)
[2024-02-08 05:18] LABS: CALCIUM 8.5 mg/dL (8.4-11.0); CREATININE 0.46 mg/dL (0.55-1.30); POTASSIUM 3.3 mmol/L (3.5-5.1)
[2024-02-08 07:27] LABS: ALBUMIN 1.4 g/dL (3.4-4.8); TOTAL BILIRUBIN 4.7 mg/dL (0.0-1.0)
[2024-02-09] VITALS (21 sets, daily range): BP systolic 98–118; PULSE 109–122; RESP 16–26; TEMP 97.4–98.5; O2SAT 98–100
[2024-02-09] MEDS: CHOLESTYRAMINE/SUCROSE 4 GM/PACKET PO SCH (20:10)
[2024-02-09] MEDS: PIPERACILLIN/TAZO 3.375 GM in D5W 50 ML IV SCH (21:14)
[2024-02-10] VITALS (18 sets, daily range): BP systolic 102–118; PULSE 94–127; RESP 19–24; TEMP 97.4–98.2; O2SAT 98–100
[2024-02-10 06:15] LABS: BASOPHILS # (AUTO) 0.1 K/uL (0.0-0.2); BASOPHILS % (AUTO) 0.3 % (0.0-2.0); EOSINOPHILS # (AUTO) 0.1 K/uL (0.0-0.4); EOSINOPHILS % (AUTO) 0.4 % (0.0-4.0); HEMATOCRIT 27.8 % (36-48); HEMOGLOBIN 8.7 g/dL (12.0-16.0); LYMPHOCYTES % (AUTO) 13.1 % (20.5-51.5); MEAN CORPUSCULAR HEMOGLOBIN 24 pg (27-31); MEAN CORPUSCULAR HGB CONC 31 % (32-36); MEAN CORPUSCULAR VOLUME 78 fL (79.0-98.0); MONOCYTES # (AUTO) 0.5 K/uL (0.0-1.0); MONOCYTES % (AUTO) 2.4 % (1.7-9.3); NEUTROPHILS # (AUTO) 19.1 K/uL (1.8-7.7); NEUTROPHILS % (AUTO) 83.8 % (40.0-70.0); PLATELET COUNT (AUTO) 374 K/uL (130-430); RED BLOOD CELL COUNT(AUTO) 3.59 MIL/uL (4.2-6.2); RED CELL DISTRIBUTION WIDTH 20.6 % (9.0-15.0); WHITE BLOOD COUNT (AUTO) 22.8 K/uL (4.8-10.8)
[2024-02-10 06:24] LABS: ALBUMIN 1.2 g/dL (3.4-4.8); CALCIUM 8.2 mg/dL (8.4-11.0); CREATININE 0.56 mg/dL (0.55-1.30); POTASSIUM 4.3 mmol/L (3.5-5.1); TOTAL BILIRUBIN 5.4 mg/dL (0.0-1.0); TOTAL PROTEIN, SERUM 6.1 g/dL (6.4-8.3)
[2024-02-11] VITALS (17 sets, daily range): BP systolic 96–118; PULSE 92–122; RESP 17–24; TEMP 97–98.3; O2SAT 96–100
[2024-02-11 10:26] LABS: HEMOGLOBIN 8.6 g/dL (12.0-16.0); MEAN CORPUSCULAR HEMOGLOBIN 25 pg (27-31); MEAN CORPUSCULAR HGB CONC 32 % (32-36); MEAN CORPUSCULAR VOLUME 78 fL (79.0-98.0); PLATELET COUNT (AUTO) 380 K/uL (130-430); RED BLOOD CELL COUNT(AUTO) 3.45 MIL/uL (4.2-6.2); RED CELL DISTRIBUTION WIDTH 20.5 % (9.0-15.0); WHITE BLOOD COUNT (AUTO) 28.2 K/uL (4.8-10.8)
[2024-02-11 12:01] LABS: BASOPHILS % (MANUAL) 0 % (0-2); EOSINOPHILS % (MANUAL) 0 % (0-7); LYMPHOCYTES % (MANUAL) 2 % (20-46); MONOCYTES % (MANUAL) 3 % (0-11)
[2024-02-11 12:02] LABS: ANISOCYTOSIS 1+; HYPOCHROMASIA 1+; PLATELET ESTIMATE ADEQUATE (ADEQUATE); STOMATOCYTES FEW; TARGET CELLS MODERATE
[2024-02-11] MEDS: VANCOMYCIN HCL 500 MG in NS 100 ML IV SCH (12:27)
[2024-02-12] VITALS (20 sets, daily range): BP systolic 93–116; PULSE 72–122; RESP 12–19; TEMP 97.4–98.1; O2SAT 100
[2024-02-12 06:29] LABS: BASOPHILS % (AUTO) 0.1 % (0.0-2.0); EOSINOPHILS % (AUTO) 0.1 % (0.0-4.0); HEMOGLOBIN 8.5 g/dL (12.0-16.0); LYMPHOCYTES # (AUTO) 5.6 K/uL (1.0-5.5); MEAN CORPUSCULAR HEMOGLOBIN 25 pg (27-31); MEAN CORPUSCULAR HGB CONC 31 % (32-36); MEAN CORPUSCULAR VOLUME 79 fL (79.0-98.0); MONOCYTES # (AUTO) 0.7 K/uL (0.0-1.0); MONOCYTES % (AUTO) 2.2 % (1.7-9.3); NEUTROPHILS # (AUTO) 23.1 K/uL (1.8-7.7); NEUTROPHILS % (AUTO) 78.6 % (40.0-70.0); PLATELET COUNT (AUTO) 385 K/uL (130-430); RED BLOOD CELL COUNT(AUTO) 3.41 MIL/uL (4.2-6.2)
[2024-02-12 07:41] LABS: CALCIUM 8.3 mg/dL (8.4-11.0); CREATININE 0.55 mg/dL (0.55-1.30); POTASSIUM 4.5 mmol/L (3.5-5.1)
[2024-02-12 08:06] LABS: WHITE BLOOD COUNT (AUTO) 29.4 K/uL (4.8-10.8)
[2024-02-12] MEDS: ALBUMIN HUMAN 25% 50 ML IV SCH (09:45)
[2024-02-12] MEDS: FLUCONAZOLE 200 mg/ NS 100 ML IV SCH (09:57)
[2024-02-13] VITALS (24 sets, daily range): BP systolic 87–117; PULSE 72–112; RESP 12–28; TEMP 97.4–99.6; O2SAT 98–100
[2024-02-13 06:33] LABS: EOSINOPHILS # (AUTO) 0.1 K/uL (0.0-0.4); EOSINOPHILS % (AUTO) 0.3 % (0.0-4.0); HEMATOCRIT 23.2 % (36-48); HEMOGLOBIN 7.2 g/dL (12.0-16.0); LYMPHOCYTES # (AUTO) 1.1 K/uL (1.0-5.5); LYMPHOCYTES % (AUTO) 6.2 % (20.5-51.5); MEAN CORPUSCULAR HEMOGLOBIN 25 pg (27-31); MEAN CORPUSCULAR HGB CONC 31 % (32-36); MEAN CORPUSCULAR VOLUME 82 fL (79.0-98.0); MONOCYTES # (AUTO) 0.4 K/uL (0.0-1.0); MONOCYTES % (AUTO) 2.4 % (1.7-9.3); NEUTROPHILS # (AUTO) 16.9 K/uL (1.8-7.7); NEUTROPHILS % (AUTO) 91.1 % (40.0-70.0); PLATELET COUNT (AUTO) 253 K/uL (130-430); RED BLOOD CELL COUNT(AUTO) 2.83 MIL/uL (4.2-6.2); RED CELL DISTRIBUTION WIDTH 20.9 % (9.0-15.0); WHITE BLOOD COUNT (AUTO) 18.5 K/uL (4.8-10.8)
[2024-02-13 06:40] LABS: ALBUMIN 1.6 g/dL (3.4-4.8); BILIRUBIN,DIRECT 5.1 mg/dL (0.0-0.3); CALCIUM 7.7 mg/dL (8.4-11.0); CREATININE 0.64 mg/dL (0.55-1.30); POTASSIUM 3.4 mmol/L (3.5-5.1); TOTAL BILIRUBIN 5.8 mg/dL (0.0-1.0); TOTAL PROTEIN, SERUM 5.4 g/dL (6.4-8.3)
[2024-02-13] MEDS: VANCOMYCIN HCL ORAL SOLUTION 25 MG/ML, 150 ML GT SCH (13:39)
[2024-02-13] MEDS: VANCOMYCIN HCL 500 MG in NS 100 ML IV SCH (13:39)
[2024-02-14] VITALS (34 sets, daily range): BP systolic 102–135; PULSE 91–108; RESP 14–30; TEMP 97.6–98; O2SAT 96–100
[2024-02-14 05:20] LABS: HEMATOCRIT 25.1 % (36-48); HEMOGLOBIN 7.8 g/dL (12.0-16.0); MEAN CORPUSCULAR HEMOGLOBIN 25 pg (27-31); MEAN CORPUSCULAR HGB CONC 31 % (32-36); MEAN CORPUSCULAR VOLUME 82 fL (79.0-98.0); PLATELET COUNT (AUTO) 304 K/uL (130-430); RED BLOOD CELL COUNT(AUTO) 3.07 MIL/uL (4.2-6.2); RED CELL DISTRIBUTION WIDTH 20.6 % (9.0-15.0); WHITE BLOOD COUNT (AUTO) 20.9 K/uL (4.8-10.8)
[2024-02-14 05:35] LABS: CALCIUM 8.4 mg/dL (8.4-11.0); CREATININE 0.51 mg/dL (0.55-1.30); POTASSIUM 4.4 mmol/L (3.5-5.1)
[2024-02-14 08:53] LABS: BASOPHILS % (MANUAL) 0 % (0-2); EOSINOPHILS % (MANUAL) 0 % (0-7); LYMPHOCYTES % (MANUAL) 4 % (20-46); MONOCYTES % (MANUAL) 2 % (0-11)
[2024-02-14 08:54] LABS: ANISOCYTOSIS 1+; HYPOCHROMASIA 1+; PLATELET ESTIMATE ADEQUATE (ADEQUATE); STOMATOCYTES FEW; TARGET CELLS MODERATE
[2024-02-14] MEDS: VANCOMYCIN HCL 750 MG in NS 250 ML IV SCH (20:36)
[2024-02-15] VITALS (32 sets, daily range): BP systolic 106–147; PULSE 81–100; RESP 19–30; TEMP 97.3–98.9; O2SAT 94–100
[2024-02-15 06:14] LABS: HEMATOCRIT 23.1 % (36-48); HEMOGLOBIN 7.3 g/dL (12.0-16.0); MEAN CORPUSCULAR HEMOGLOBIN 26 pg (27-31); MEAN CORPUSCULAR HGB CONC 32 % (32-36); MEAN CORPUSCULAR VOLUME 82 fL (79.0-98.0); PLATELET COUNT (AUTO) 299 K/uL (130-430); RED BLOOD CELL COUNT(AUTO) 2.81 MIL/uL (4.2-6.2); RED CELL DISTRIBUTION WIDTH 24.9 % (9.0-15.0)
[2024-02-15 06:54] LABS: ALBUMIN 1.1 g/dL (3.4-4.8); CREATININE 0.47 mg/dL (0.55-1.30); TOTAL BILIRUBIN 6.8 mg/dL (0.0-1.0); TOTAL PROTEIN, SERUM 5.5 g/dL (6.4-8.3)
[2024-02-15 10:17] LABS: BAND % (MANUAL) 4 % (0-6); BASOPHILS % (MANUAL) 0 % (0-2); EOSINOPHILS % (MANUAL) 0 % (0-7); LYMPHOCYTES % (MANUAL) 5 % (20-46); MONOCYTES % (MANUAL) 1 % (0-11)
[2024-02-15 10:18] LABS: ANISOCYTOSIS 2+; HYPOCHROMASIA 1+; PLATELET ESTIMATE ADEQUATE (ADEQUATE); STOMATOCYTES FEW; TARGET CELLS MODERATE
[2024-02-15] MEDS: ALBUMIN HUMAN 25% 200 ML IV ONE (12:00)
[2024-02-15] MEDS: FUROSEMIDE 20 MG/2 ML VIAL IVP ONE (12:00)
[2024-02-15] MEDS: FUROSEMIDE 20 MG/2 ML VIAL IVP SCH (21:48)
[2024-02-16] VITALS (27 sets, daily range): BP systolic 94–117; PULSE 90–112; RESP 20–27; TEMP 96.7–98.2; O2SAT 97–100
[2024-02-16 05:10] LABS: BASOPHILS % (AUTO) 0.1 % (0.0-2.0); EOSINOPHILS # (AUTO) 0.1 K/uL (0.0-0.4); EOSINOPHILS % (AUTO) 0.3 % (0.0-4.0); LYMPHOCYTES # (AUTO) 4.8 K/uL (1.0-5.5); LYMPHOCYTES % (AUTO) 29.4 % (20.5-51.5); MEAN CORPUSCULAR HEMOGLOBIN 26 pg (27-31); MEAN CORPUSCULAR HGB CONC 32 % (32-36); MEAN CORPUSCULAR VOLUME 82 fL (79.0-98.0); MONOCYTES # (AUTO) 0.4 K/uL (0.0-1.0); MONOCYTES % (AUTO) 2.7 % (1.7-9.3); NEUTROPHILS # (AUTO) 11.1 K/uL (1.8-7.7); NEUTROPHILS % (AUTO) 67.5 % (40.0-70.0); PLATELET COUNT (AUTO) 296 K/uL (130-430); RED BLOOD CELL COUNT(AUTO) 2.51 MIL/uL (4.2-6.2); RED CELL DISTRIBUTION WIDTH 28.4 % (9.0-15.0); WHITE BLOOD COUNT (AUTO) 16.4 K/uL (4.8-10.8)
[2024-02-16 05:30] LABS: ALBUMIN 1.8 g/dL (3.4-4.8); CALCIUM 8.1 mg/dL (8.4-11.0); CREATININE 0.46 mg/dL (0.55-1.30); POTASSIUM 3.9 mmol/L (3.5-5.1); TOTAL BILIRUBIN 8.5 mg/dL (0.0-1.0); TOTAL PROTEIN, SERUM 5.3 g/dL (6.4-8.3)
[2024-02-16 05:56] LABS: HEMATOCRIT 20.7 % (36-48); HEMOGLOBIN 6.5 g/dL (12.0-16.0)
[2024-02-16] MEDS: ALBUMIN HUMAN 25% 50 ML IV SCH (11:55)
[2024-02-16] MEDS: BUMEX 1 MG/4 ML VIAL IVP ONE (11:57)
[2024-02-16 16:31] LABS: EOSINOPHILS # (AUTO) 0.1 K/uL (0.0-0.4); EOSINOPHILS % (AUTO) 0.4 % (0.0-4.0); HEMATOCRIT 23.2 % (36-48); HEMOGLOBIN 7.8 g/dL (12.0-16.0); LYMPHOCYTES # (AUTO) 1.1 K/uL (1.0-5.5); LYMPHOCYTES % (AUTO) 5.5 % (20.5-51.5); MEAN CORPUSCULAR HEMOGLOBIN 28 pg (27-31); MEAN CORPUSCULAR HGB CONC 34 % (32-36); MEAN CORPUSCULAR VOLUME 83 fL (79.0-98.0); MONOCYTES # (AUTO) 0.5 K/uL (0.0-1.0); MONOCYTES % (AUTO) 2.6 % (1.7-9.3); NEUTROPHILS # (AUTO) 17.8 K/uL (1.8-7.7); NEUTROPHILS % (AUTO) 91.5 % (40.0-70.0); PLATELET COUNT (AUTO) 267 K/uL (130-430); RED BLOOD CELL COUNT(AUTO) 2.78 MIL/uL (4.2-6.2); RED CELL DISTRIBUTION WIDTH 20.2 % (9.0-15.0); WHITE BLOOD COUNT (AUTO) 19.4 K/uL (4.8-10.8)
[2024-02-16 18:58] LABS: ANISOCYTOSIS 1+; HYPOCHROMASIA 1+; TARGET CELLS MODERATE
[2024-02-16 18:59] LABS: OVALOCYTES FEW
[2024-02-17] VITALS (33 sets, daily range): BP systolic 88–111; PULSE 92–118; RESP 19–32; TEMP 97–98.4; O2SAT 30–100
[2024-02-17] MEDS: NS 1000 ML IV.SOLN IV ONE (04:27)
[2024-02-17] MEDS: ALBUMIN HUMAN 25% 50 ML IV ONE (04:29)
[2024-02-17 05:03] LABS: CALCIUM 7.9 mg/dL (8.4-11.0); CREATININE 0.6 mg/dL (0.55-1.30); POTASSIUM 3.4 mmol/L (3.5-5.1)
[2024-02-17 05:12] LABS: BASOPHILS % (AUTO) 0.1 % (0.0-2.0); EOSINOPHILS % (AUTO) 0.1 % (0.0-4.0); LYMPHOCYTES # (AUTO) 1.1 K/uL (1.0-5.5); LYMPHOCYTES % (AUTO) 4.5 % (20.5-51.5); MEAN CORPUSCULAR HEMOGLOBIN 27 pg (27-31); MEAN CORPUSCULAR HGB CONC 32 % (32-36); MEAN CORPUSCULAR VOLUME 85 fL (79.0-98.0); MONOCYTES # (AUTO) 0.8 K/uL (0.0-1.0); MONOCYTES % (AUTO) 3.2 % (1.7-9.3); NEUTROPHILS # (AUTO) 21.7 K/uL (1.8-7.7); NEUTROPHILS % (AUTO) 92.1 % (40.0-70.0); PLATELET COUNT (AUTO) 335 K/uL (130-430); RED BLOOD CELL COUNT(AUTO) 2.58 MIL/uL (4.2-6.2); RED CELL DISTRIBUTION WIDTH 20.6 % (9.0-15.0); WHITE BLOOD COUNT (AUTO) 23.6 K/uL (4.8-10.8)
[2024-02-17 06:02] LABS: HEMATOCRIT 21.8 % (36-48)
[2024-02-17] MEDS ORDERED: NOREPINEPHRINE BITARTRATE 8 MG in D5W 242 ML IV PRN (09:00)
[2024-02-17] MEDS: ALBUMIN HUMAN 25% 200 ML IV ONE (12:11)
[2024-02-18] VITALS (37 sets, daily range): BP systolic 89–112; PULSE 81–106; RESP 27–33; TEMP 97.1–98.5; O2SAT 99–100
[2024-02-18 05:20] LABS: ALBUMIN 2.6 g/dL (3.4-4.8); CREATININE 0.73 mg/dL (0.55-1.30); POTASSIUM 3.6 mmol/L (3.5-5.1); TOTAL BILIRUBIN 9.3 mg/dL (0.0-1.0); TOTAL PROTEIN, SERUM 4.9 g/dL (6.4-8.3)
[2024-02-18 05:42] LABS: BASOPHILS % (AUTO) 0.1 % (0.0-2.0); EOSINOPHILS % (AUTO) 0.1 % (0.0-4.0); LYMPHOCYTES # (AUTO) 0.9 K/uL (1.0-5.5); LYMPHOCYTES % (AUTO) 3.7 % (20.5-51.5); MEAN CORPUSCULAR HEMOGLOBIN 28 pg (27-31); MEAN CORPUSCULAR HGB CONC 32 % (32-36); MEAN CORPUSCULAR VOLUME 87 fL (79.0-98.0); MONOCYTES # (AUTO) 0.8 K/uL (0.0-1.0); MONOCYTES % (AUTO) 3.2 % (1.7-9.3); NEUTROPHILS # (AUTO) 22.8 K/uL (1.8-7.7); NEUTROPHILS % (AUTO) 92.9 % (40.0-70.0); PLATELET COUNT (AUTO) 235 K/uL (130-430); RED CELL DISTRIBUTION WIDTH 21.4 % (9.0-15.0); WHITE BLOOD COUNT (AUTO) 24.5 K/uL (4.8-10.8)
[2024-02-18 05:48] LABS: RED BLOOD CELL COUNT(AUTO) 1.71 MIL/uL (4.2-6.2)
[2024-02-18 05:51] LABS: HEMATOCRIT 14.9 % (36-48); HEMOGLOBIN 4.7 g/dL (12.0-16.0)
[2024-02-18 13:04] LABS: TOTAL IRON BIND. CAPACITY 329 ug/dL (250-450)
[2024-02-18] MEDS: PANTOPRAZOLE SODIUM 40 MG in NS 50 ML IV SCH (13:59)
[2024-02-18] MEDS: BALSAM PERU/CASTOR OIL 56.7 GM OINT...G. TP ONE (14:00)
[2024-02-18] MEDS: VANCOMYCIN HCL 750 MG in NS 250 ML IV SCH (14:22)
[2024-02-19] VITALS (33 sets, daily range): BP systolic 90–123; PULSE 83–100; RESP 27–32; TEMP 96.1–97.6; O2SAT 99–100
[2024-02-19 06:34] LABS: HEMATOCRIT 24.2 % (36-48); MEAN CORPUSCULAR HEMOGLOBIN 28 pg (27-31); MEAN CORPUSCULAR HGB CONC 33 % (32-36); MEAN CORPUSCULAR VOLUME 85 fL (79.0-98.0); PLATELET COUNT (AUTO) 232 K/uL (130-430); RED BLOOD CELL COUNT(AUTO) 2.84 MIL/uL (4.2-6.2); RED CELL DISTRIBUTION WIDTH 16.4 % (9.0-15.0); WHITE BLOOD COUNT (AUTO) 25.1 K/uL (4.8-10.8)
[2024-02-19 06:52] LABS: CALCIUM 7.7 mg/dL (8.4-11.0); CREATININE 0.67 mg/dL (0.55-1.30); POTASSIUM 3.2 mmol/L (3.5-5.1)
[2024-02-19] MEDS ORDERED: VANCOMYCIN HCL 500 MG in NS 100 ML IV SCH (08:45)
[2024-02-19] MEDS: BALSAM PERU/CASTOR OIL 56.7 GM OINT...G. TP SCH (08:46)
[2024-02-19 10:18] LABS: BAND % (MANUAL) 3 % (0-6); BASOPHILS % (MANUAL) 0 % (0-2); EOSINOPHILS % (MANUAL) 0 % (0-7); LYMPHOCYTES % (MANUAL) 2 % (20-46); MONOCYTES % (MANUAL) 2 % (0-11)
[2024-02-19 10:19] LABS: ANISOCYTOSIS 1+; HYPOCHROMASIA SLIGHT; OVALOCYTES FEW; PLATELET ESTIMATE ADEQUATE (ADEQUATE); POLYCHROMASIA SLIGHT; STOMATOCYTES FEW; TARGET CELLS FEW
[2024-02-19] MEDS: FLUCONAZOLE 200 mg/ NS 100 ML IV SCH (11:34)
[2024-02-20] VITALS (34 sets, daily range): BP systolic 78–129; PULSE 88–106; RESP 26–31; TEMP 95.9–97.3; O2SAT 100
[2024-02-20 05:15] LABS: BASOPHILS % (AUTO) 0.1 % (0.0-2.0); EOSINOPHILS # (AUTO) 0.1 K/uL (0.0-0.4); EOSINOPHILS % (AUTO) 0.4 % (0.0-4.0); HEMATOCRIT 24.5 % (36-48); HEMOGLOBIN 8.3 g/dL (12.0-16.0); LYMPHOCYTES # (AUTO) 0.8 K/uL (1.0-5.5); LYMPHOCYTES % (AUTO) 3.7 % (20.5-51.5); MEAN CORPUSCULAR HEMOGLOBIN 29 pg (27-31); MEAN CORPUSCULAR HGB CONC 34 % (32-36); MEAN CORPUSCULAR VOLUME 85 fL (79.0-98.0); MONOCYTES # (AUTO) 0.7 K/uL (0.0-1.0); MONOCYTES % (AUTO) 3.4 % (1.7-9.3); NEUTROPHILS # (AUTO) 20.1 K/uL (1.8-7.7); PLATELET COUNT (AUTO) 231 K/uL (130-430); RED BLOOD CELL COUNT(AUTO) 2.88 MIL/uL (4.2-6.2); RED CELL DISTRIBUTION WIDTH 17.6 % (9.0-15.0); WHITE BLOOD COUNT (AUTO) 21.8 K/uL (4.8-10.8)
[2024-02-20 05:40] LABS: ALBUMIN 1.9 g/dL (3.4-4.8); CALCIUM 7.8 mg/dL (8.4-11.0); CREATININE 0.73 mg/dL (0.55-1.30); TOTAL BILIRUBIN 11.9 mg/dL (0.0-1.0); TOTAL PROTEIN, SERUM 4.9 g/dL (6.4-8.3)
[2024-02-20 07:39] LABS: NEUTROPHILS % (AUTO) 92.4 % (40.0-70.0)
[2024-02-21] VITALS (31 sets, daily range): BP systolic 77–108; PULSE 44–114; RESP 19–30; TEMP 97.5–98.2; O2SAT 99–100
[2024-02-21 04:38] LABS: BASOPHILS % (AUTO) 0.1 % (0.0-2.0); EOSINOPHILS # (AUTO) 0.1 K/uL (0.0-0.4); EOSINOPHILS % (AUTO) 0.3 % (0.0-4.0); HEMATOCRIT 24.7 % (36-48); HEMOGLOBIN 8.1 g/dL (12.0-16.0); LYMPHOCYTES # (AUTO) 3.6 K/uL (1.0-5.5); LYMPHOCYTES % (AUTO) 18.1 % (20.5-51.5); MEAN CORPUSCULAR HEMOGLOBIN 29 pg (27-31); MEAN CORPUSCULAR HGB CONC 33 % (32-36); MEAN CORPUSCULAR VOLUME 88 fL (79.0-98.0); MONOCYTES # (AUTO) 0.6 K/uL (0.0-1.0); MONOCYTES % (AUTO) 2.8 % (1.7-9.3); NEUTROPHILS # (AUTO) 15.8 K/uL (1.8-7.7); NEUTROPHILS % (AUTO) 78.7 % (40.0-70.0); PLATELET COUNT (AUTO) 230 K/uL (130-430); RED CELL DISTRIBUTION WIDTH 18.7 % (9.0-15.0); WHITE BLOOD COUNT (AUTO) 20.1 K/uL (4.8-10.8)
[2024-02-21 05:08] LABS: ALBUMIN 1.6 g/dL (3.4-4.8); CALCIUM 7.7 mg/dL (8.4-11.0); CREATININE 0.76 mg/dL (0.55-1.30); POTASSIUM 3.2 mmol/L (3.5-5.1); TOTAL BILIRUBIN 12.5 mg/dL (0.0-1.0); TOTAL PROTEIN, SERUM 4.8 g/dL (6.4-8.3)
[2024-02-21] MEDS: ALBUMIN HUMAN 25% 200 ML IV ONE (20:48)
[2024-02-22] VITALS (16 sets, daily range): BP systolic 88–131; PULSE 90–103; RESP 22–27; TEMP 97.4–97.9; O2SAT 99–100
[2024-02-22] MEDS: PANTOPRAZOLE SODIUM 40 MG/VIAL (PROTONIX) IVP SCH (09:18)
[2024-02-22] MEDS: ALBUMIN HUMAN 25% 50 ML IV ONE (10:43)
[2024-02-22 11:31] LABS: CALCIUM 7.8 mg/dL (8.4-11.0); CREATININE 0.72 mg/dL (0.55-1.30)
[2024-02-22 11:33] LABS: POTASSIUM 2.6 mmol/L (3.5-5.1)
[2024-02-22] MEDS ORDERED: POTA-197 PO (11:38)
[2024-02-22] MEDS: POTASSIUM CHLORIDE 20 MEQ/PKT PACKET PO ONE (12:35)
[2024-02-22] MEDS: HEPARIN IV FLUSH 300 UNITS/3ML SYR INJ ONE (13:01)
== END 2024-02-22 14:00 | disposition left against medical advice (07) | DRG 4 ==
LOC: SED 14:25 → SIC 17:04 → STU 01-25 18:05 → SIC 02-13 19:37
PROVIDERS: ADMIT Family Medicine; ATTEND Family Medicine
PROC: 5A1955Z Respiratory Ventilation, Greater than 96 Consecutive Hours (ICD-10-PCS; principal; 2024-01-02)
PROC: 0BH17EZ Insertion of Endotracheal Airway into Trachea, Via Natural or Artificial Opening (ICD-10-PCS; 2024-01-02)
PROC: 0B110F4 Bypass Trachea to Cutaneous with Tracheostomy Device, Open Approach (ICD-10-PCS; 2024-01-19)
PROC: 30233N1 Transfusion of Nonautologous Red Blood Cells into Peripheral Vein, Percutaneous Approach (ICD-10-PCS; 2024-01-24)
PROC: 0FJB8ZZ Inspection of Hepatobiliary Duct, Via Natural or Artificial Opening Endoscopic (ICD-10-PCS; 2024-02-07)
PROC: 30233K1 Transfusion of Nonautologous Frozen Plasma into Peripheral Vein, Percutaneous Approach (ICD-10-PCS; 2024-02-18)
PROC: 30233R1 Transfusion of Nonautologous Platelets into Peripheral Vein, Percutaneous Approach (ICD-10-PCS; 2024-02-19)
DX: A41.9 Sepsis, unspecified organism (principal); J15.0 Pneumonia due to Klebsiella pneumoniae; J96.01 Acute respiratory failure with hypoxia; E43 Unspecified severe protein-calorie malnutrition; K83.1 Obstruction of bile duct; G92.9 Unspecified toxic encephalopathy; Z99.11 Dependence on respirator [ventilator] status; R18.8 Other ascites; C79.31 Secondary malignant neoplasm of brain; Z68.1 Body mass index [BMI] 19.9 or less, adult; K94.23 Gastrostomy malfunction; K83.09 Other cholangitis; C79.89 Secondary malignant neoplasm of other specified sites; G40.909 Epilepsy, unspecified, not intractable, without status epilepticus; E03.9 Hypothyroidism, unspecified; E88.09 Other disorders of plasma-protein metabolism, not elsewhere classified; E87.5 Hyperkalemia; C50.911 Malignant neoplasm of unspecified site of right female breast; E87.6 Hypokalemia; R13.10 Dysphagia, unspecified; I11.0 Hypertensive heart disease with heart failure; K86.9 Disease of pancreas, unspecified; I50.9 Heart failure, unspecified; D50.9 Iron deficiency anemia, unspecified; D75.839 Thrombocytosis, unspecified; E11.65 Type 2 diabetes mellitus with hyperglycemia; Z20.822 Contact with and (suspected) exposure to COVID-19; E83.51 Hypocalcemia; E83.52 Hypercalcemia; Z92.21 Personal history of antineoplastic chemotherapy; Z86.73 Personal history of transient ischemic attack (TIA), and cerebral infarction without residual deficits; Z85.3 Personal history of malignant neoplasm of breast; Z74.01 Bed confinement status; Z85.841 Personal history of malignant neoplasm of brain; Z79.4 Long term (current) use of insulin
CPT/HCPCS: 36415; 36600; 70450-TC; 71045; 71250-TC; 74240; 76000; 76700; 80048; 80053; 80076; 80202; 81000; 81001; 81015; 82272; 82803; 82948; 83540; 83550; 83605; 83690; 83735; 83880; 84100; 84484; 85007; 85018; 85025; 85027; 85044; 85379; 85610; 85651; 85730; 86886; 86900; 86901; 86920; 87040; 87070; 87081; 87086; 87186; 87205; 87230; 89055; 93005; 94002; 94003; 94070; 94640; 94664; 94760; 99291; 99292; C1769; C9113; G0378; J0153; J0330; J0456; J0610; J0692; J1450; J1642; J1650; J1815; J1940; J1953; J1956; J2001; J2060; J2250; J2405; J2470; J2543; J2765; J2916; J3010; J3370; J3480; J3490; J7050; J7060; J7120; P9021; P9034; P9046; P9059; Q9963